=== PATIENT | female | born 1930 | race Caucasian/White ===

== ENCOUNTER 2016-12-26 16:39 | Emergency (ER) | payer MEDICARE, OTHER ==
--- NOTE | ~2016-12-26 | ER ---
PATIENT'S NAME: JESSICA LOAIZA [facility] AGE: 86 Y [address] ROOM: [place] [address] LOCATION: ED ADMIT DATE: 12/26/2016 ER/Outpatient Report DISCHARGE DATE: 12/26/2016 FAMILY PHYSICIAN: Chilango Reed MD ATTENDING PHYSICIAN: Shyam Tapia Time of Arrival: 1644 hours. Time of Evaluation: 1657 hours. CHIEF COMPLAINT: Weakness. HISTORY OF PRESENT ILLNESS: The patient states that she did hemodialysis today as scheduled and just feels very weak. Her states that she has not felt the best for the past week. She had decreased appetite. She states she itches all over, but that has been going on for quite some time. She reports being nauseated, has not vomited. Denies having any chest pain. She has not had a cough. She does not feel short of breath. Denies having any abdominal pain. States she does not make urine on a regular basis. ALLERGIES: CODEINE. CURRENT MEDICATIONS: On her chart and were reviewed by me. PAST MEDICAL HISTORY: Paroxysmal atrial fib; osteoporosis; osteoarthritis; aortic stenosis; pulmonary hypertension; hypertension; hypothyroidism; valvular heart disease; depression; end-stage renal disease, requiring hemodialysis; coronary artery disease; seizures; hiatal hernia. PAST SURGICAL HISTORY: Fistula, hernia repair, and gastric bypass that was a result of a failed Sujey fundoplication. SOCIAL HISTORY: She lives at home with her . Denies use of drugs, alcohol, or tobacco. REVIEW OF SYSTEMS: All negative other than those mentioned in the HPI. PHYSICAL EXAMINATION: VITAL SIGNS: She weighs 62.7 kg, blood pressure is 88/63, pulse of 90, PATIENT'S NAME: JESSICA LOAIZA [facility] AGE: 86 Y [address] ROOM: [place] [address] LOCATION: [facility] ADMIT DATE: 12/26/2016 ER/Outpatient Report DISCHARGE DATE: 12/26/2016 FAMILY PHYSICIAN: Chilango Reed MD ATTENDING PHYSICIAN: Shyam Tapia respirations 16, temperature of 97.9, O2 saturation is 96% on room air. GENERAL: She is awake, alert, and oriented x4. SKIN: [place], warm, and dry. RESPIRATIONS: Even and nonlabored. HEENT: Pupils are equal and reactive to light. Oropharynx is clear. NECK: Supple. No lymphadenopathy. LUNGS: Lung sounds are clear throughout. HEART: Regular rate and rhythm. ABDOMEN: Round, slightly distended. Bowel sounds are present. EXTREMITIES: She has strong pulses of all extremities. No peripheral edema noted. LABORATORY DATA AND X-RAYS: Lab work was drawn. CBC shows a white count of 5.8, her hemoglobin is 10.4 with hematocrit of 32.2. Sedimentation rate was 69. Chem panel: Sodium is 139, potassium is 3.8, chloride is 101, BUN is 21 with a creatinine of 3. Her CRP was 1.61. CPK was 70, CK-MB was 2.2, troponin was 0.231. Free T4 was 1.2 with a TSH of 6. Phosphorus was 1.8. EKG shows sinus rhythm with multifocal PVCs. EMERGENCY DEPARTMENT COURSE: The patient was monitored. IV saline lock was initiated with fluids of normal saline at 500 mL bolus over an hour was given. The patient was reviewed with Dr. Beltrán. Her lab work is comparable to what it has been. The patient states that she is feeling better after the fluids and would like to go home. She does not want to stay in the hospital. She is scheduled to do dialysis again on Monday. IMPRESSION: Weakness, mild dehydration from dialysis. PLAN: Home. Rest. Fluids. Continue her current medications. Do dialysis as scheduled. However, if she is not feeling better within the next 24 to 48 hours, I encouraged her to get in touch with her primary provider or return to the ER. She agreed and verbalized understanding. OG CLARK APRN FOR MD PHANI OROZCO/isamar PATIENT'S NAME: JESSICA LOAIZA [facility] AGE: 86 Y [address] ROOM: [place], [place] [address] LOCATION: GMED ADMIT DATE: 12/26/2016 ER/Outpatient Report DISCHARGE DATE: 12/26/2016 FAMILY PHYSICIAN: Chilango Reed MD ATTENDING PHYSICIAN: Shyam Tapia /[id number] d: 12/27/16240 t: 01/10/17 193, OUTPATIENT REPORT
[~2016-12-26 16:39] MED LIST: "\\\"PREP SPRAY\\\"-TIN4 OZ"; ASPIRIN LO-DOSE81 MG PO; CALCIUM 600 +1 EAC7 PO; CALCIUM ACETAT667 M1 PO; CHILDREN'S CHEW81 MG PO; CIPRO500 MG PO; COMBIGAN 0.25 ML/BOT OPHTH; CORDARONE,PACE200 MG PO; COZAAR25 MG PO; DILANTIN100 MG PO; DIPHENOXYLATE-1 EACH PO; ELIQUIS2.5 MG PO; ELIQUIS5 MG PO; FEOSOL325 MG PO; FOSAMAX70 MG PO; LEVOTHROID (SY88 MCG PO; LIPITOR40 MG PO; LOPRESSOR25 MG PO; MIDODRINE HCL10 MG PO; NORVASC2.5 MG PO; PHENERGAN25 M1 PO; PLAVIX75 MG PO; PRESERVISION A1 EAC2 PO; TYLENOL EXTRA500 MG PO; ULTRAM50 MG PO; VITAMIN B-1000 MCG/M SUB-Q; ZYRTEC10 MG PO
[2016-12-26 17:21] LABS: BASOPHIL % 0.3 %; EOSINOPHIL # 0.1 K/uL (0.0-0.5); EOSINOPHIL % 1.5 %; HEMATOCRIT 32.2 % (30.0-46.0); HEMOGLOBIN 10.4 g/dL (10.0-15.0); IMMATURE GRANULOCYTE % 0.3 %; LYMPHOCYTE # 0.9 K/uL (0.8-4.0); LYMPHOCYTE % 14.8 %; MCH 36.2 pg (27.0-34.0); MCHC 32.3 gm/dL (32.0-36.5); MCV 112.2 fl (83.0-98.0); MONOCYTE # 0.6 K/uL (0.0-1.0); MONOCYTE % 10.1 %; MPV 9.8 fl (9.4-12.4); NEUTROPHIL # (ANC) 4.3 K/uL (1.8-7.8); NRBC % 0 /100WBC (0-0.00); PLATELET COUNT 158 K/uL (150-450); RDW-CV 16.8 % (11.9-14.6); WBC 5.8 K/uL (4.0-11.0)
[2016-12-26 17:23] LABS: RBC 2.87 M/uL (3.00-5.00)
[2016-12-26 17:37] LABS: ALBUMIN 2.7 gm/dL (3.5-5.0); ANION GAP 9.8 (10.0-19.0); CALCIUM 8.5 mg/dL (8.5-10.5); POTASSIUM 3.8 mMol/L (3.7-5.1); TOTAL BILIRUBIN 0.9 mg/dL (0.0-1.5); TOTAL PROTEIN 7.3 g/dL (6.0-8.4)
== END 2016-12-26 20:38 | disposition disaster alternative care site (69) ==
LOC: GMED 16:39
PROVIDERS: Nurse Practitioner Family
DX: R53.1 Weakness (principal); E86.0 Dehydration; I12.0 Hypertensive chronic kidney disease with stage 5 chronic kidney disease or end stage renal disease; N18.6 End stage renal disease; I25.10 Atherosclerotic heart disease of native coronary artery without angina pectoris; F32.9 Major depressive disorder, single episode, unspecified; Z99.2 Dependence on renal dialysis; I48.0 Paroxysmal atrial fibrillation; Z88.5 Allergy status to narcotic agent; Z79.899 Other long term (current) drug therapy
CPT/HCPCS: J7030

== ENCOUNTER 2017-02-12 18:10 | Inpatient (IN) | payer MEDICARE, OTHER ==
[~2017-02-12] VITALS: Ht 170.2 cm; Wt 70.8 kg
--- NOTE | ~2017-02-12 | CON ---
PATIENT'S NAME: JESSICA LOAIZA [facility] AGE: 86 Y [address] ROOM: [address] [place] [id number] LOCATION: GICU ADMIT DATE: 02/12/2017 Consultation DISCHARGE DATE: FAMILY PHYSICIAN: Chilango Reed MD ATTENDING PHYSICIAN: CORTEZ KERN REFERRING PHYSICIAN: Redd Summers MD REASON FOR CARDIOLOGY CONSULTATION: Atrial fibrillation with rapid ventricular response. HISTORY OF PRESENT ILLNESS: This is an 86-year-old white female with end-stage renal disease, who completes hemodialysis on Monday, Monday, and Monday. She normally follows her cardiology care with Dr. Noe Antonio. She presented to [facility] Emergency Department with complaints of not feeling well, overall tired, and nauseated. Her admits that she has been having some shaking episodes yesterday. Her last hemodialysis run was on Monday. On her hat marker, she appears to be in atrial fibrillation with rapid ventricular response as well as having a new intraventricular conduction delay. She has a previous history of being cardioverted by Dr. Noe Antonio on 06/21/2016, and at that time, she had a narrow QRS. Her last echocardiogram in April of 2016 had new regional wall motion abnormalities and decreased ejection fraction when compared to her 2014 echo. Catheterization in 2003 showed nonobstructive coronary artery disease, but she does have known moderate to severe aortic stenosis and mitral regurgitation. Per the emergency room physician, she was having runs of ventricular tachycardia as well and is currently on IV amiodarone. PAST MEDICAL HISTORY: 1. Chronic systolic congestive heart failure. 2. Paroxysmal atrial fibrillation. 3. End-stage renal disease, on hemodialysis on Monday, Monday, and Monday. 4. Hypertension. 5. Hypothyroidism. 6. History of stroke. 7. History of seizure. 8. 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 9. History of lower GI bleeding. PAST SURGICAL HISTORY: 1. Hiatal hernia repair. 2. Bilateral cataract removal. FAMILY HISTORY: The patient's father due to heart disease. Her mother had a history PATIENT'S NAME: JESSICA LOAIZA [facility] AGE: 86 Y [address] ROOM: [place] [address] LOCATION: [facility] ADMIT DATE: 02/12/2017 Consultation DISCHARGE DATE: FAMILY PHYSICIAN: Chilango Reed MD ATTENDING PHYSICIAN: CORTEZ KERN of colon cancer. She has a sister with a history of breast cancer and a brother with celiac disease. SOCIAL HISTORY: The patient denies ever using tobacco. She also denies alcohol or illicit drug use. CURRENT MEDICATIONS: 1. Amiodarone IV. 2. Heparin IV per ACS protocol. 3. Protonix 40 mg IV twice daily. REVIEW OF SYSTEMS: Pertinent positive review of systems as listed in the HPI. All other review of systems were evaluated and negative. PHYSICAL EXAMINATION: VITAL SIGNS: Temperature 98.0, pulse 94, respirations 31, blood pressure 91/41, and O2 saturation 97% on room air. The patient weighs 62.6 kg. SKIN: Dusky in color. ENT: Oral mucosa is pink and moist. She does have the presence of jugular venous distention. CHEST: There are noted rales throughout lung sims. HEART: Irregular rate and rhythm. There is a 2/6 holosystolic murmur as well as a 2/6 systolic ejection murmur. ABDOMEN: Soft and nontender. MUSCULOSKELETAL: Peripheral pulses palpable, but diminished. There is mild lower extremity edema present. PSYCHIATRIC: Disoriented to full medical details. Majority of her medical history from chart review and from speaking with her . IMPRESSION AND PLAN: Per Dr. Summers. 1. Atrial fibrillation with rapid ventricular response. 2. New intraventricular conduction delay. 3. Mild hyperkalemia. 4. Nonsustained ventricular tachycardia. 5. Low level troponin elevation which is chronic. The patient's proBNP is greater than 175,000. We will continue to trend cardiac enzymes and continue the IV amiodarone and correct electrolytes. We will continue supportive care in the ICU admission. Her preliminary echocardiogram shows biventricular dysfunction with right ventricular volume overload. There was severe tricuspid regurgitation as well as severe pulmonary hypertension. Left ventricular ejection fraction down to 15% to 20% as well as severe aortic stenosis and mitral regurgitation. We will continue PATIENT'S NAME: JESSICA LOAIZA [facility] AGE: 86 Y [address] ROOM: [place] [address] LOCATION: [facility] ADMIT DATE: 02/12/2017 Consultation DISCHARGE DATE: FAMILY PHYSICIAN: Chilango Reed MD ATTENDING PHYSICIAN: CORTEZ KERN anticoagulation with heparin and add dobutamine. We will continue to monitor, evaluate, and treat as appropriate until care is resumed by Dr. Noe Antonio in the morning. Thank you for this consult. Thank for allowing [facility] to interact in the care of this patient. HELLEN GLYNN APRN FOR FREDA-MD DARRIUS ESPAZRA/modl /[id number] d: 02/13/17 1411 t: 02/26/17 1153, CONSULTATION REPORT
--- NOTE | ~2017-02-12 | CATH ---
Cardiac Diagnostic Report Demographics Patient Name FADIA Goodman Gender Female Date of 1930 Age 86 year(s) Patient Number [id number] Date of Study 02/21/2017 Visit Number [id number] Room Number G[address] [place] [id number] Ht 162.56 cm Wt 64 kg Referring Derek Kee Primary Physician Physician Shari REESE Performing Marisela Liu MD Secondary Physician Physician Diagnostic Marisela Liu MD Assisting Physician Physician Interventional Physician Pull Up Hand Physician Findings and Conclusions Diagnostic Findings and Conclusion Non obstructive CAD Severe pulmonary hypertension Diagnostic Recommendations Referral for TAVR Routine post perclose Procedure Description The patient was brought to the diagnostic cardiac catheterization-EP laboratory in the fasting, non-sedated state. Informed consent was obtained in the written and verbal form after the risks and benefits were explained. The patient had no further questions and agreed to proceed. The planned puncture-incision site(s) were shaved and prepped with ChloraPrep and draped in the usual sterile manner. Conscious sedation, supplemental oxygen, and pain control medications were delivered by a registered nurse under physician guidance. Surface ECG rhythm, blood pressure measurement, and pulse oximetry were monitored throughout the procedure. Arterial access. The access site was infiltrated with lidocaine. The vessel was entered with the Seldinger technique. A sheath was advanced into the vessel and used for catheter placement. Venous access. The access site was infiltrated with 2% lidocaine. The vessel was entered with the Seldinger technique. A sheath was advanced into the vessel and used for catheter placement. Selective left coronary angiography. A catheter was advanced into the left coronary vessel ostium under Fluoroscopic guidance. Contrast was injected by hand. Images were obtained in multiple projections. Selective right coronary angiography. A catheter was advanced into the right coronary vessel ostium under fluoroscopic guidance. Contrast was injected by hand. Images were obtained in multiple projections. Right heart catheterization. A Knott Leighton catheter was successfully advanced to the right atrium, right ventricle, pulmonary artery, and pulmonary artery wedge position under fluoroscopic guidance. Resting hemodynamics were obtained. Measurements included pressures, arterial and venous oxygen saturation samples, and cardiac output. The Knott was removed without difficulty. Arterial and Venous hemostasis was achieved. The patient was transferred to a regular nursing floor via cart accompanied by a nurse. The patient left the laboratory in stable condition. Diagnostic Cath Status: Urgent Procedure Procedure Type Diagnostic procedure:Angiography:, RHC w/Coronary Angio Indications: Mitral Regurgation and aortic stenosis. The procedure was explained in detail to the patient. Risks, complications and alternative treatments were reviewed. Written consent was obtained. Medications Reviewed with Patient prior to Procedure. Angiographic Findings Dominance: Right Cardiac Arteries and Lesion Findings LMCA: Normal (0% Stenosis).Large LAD: Normal (0% Stenosis).LAD large. Diag 1 large LCx: Normal (0% Stenosis).Circ co dominant and large. OM medium RCA: Normal (0% Stenosis).RCA large. PL and PDA medium Procedure Data Procedure Date Date: 02/21/2017Start: 12:12 PMEnd: 12:56 PM Entry Locations - Percutaneous access was performed through the Right Femoral artery (Primary location). A 6 Fr sheath was inserted. Hemostasis was successfully obtained using Perclose ProGlide (Mukherjee). Closure Comments: Perclose deployed by Jv. - Percutaneous access was performed through the Right Femoral vein. A 7 Fr sheath was inserted. Devices Used - A6 Fr. BS JL 4 Diag. Catheterwas used for:Left coronary angiography. - A6 Fr. BS Angled Pigtail Diag. Catheterwas used for:LV Pressures.Unable to cannulate the vessel. - A6 Fr. BS JR 4 Diag. Catheterwas used for:LV Pressures.Unable to cannulate the vessel. - A6 Fr. BS JR 4 Diag. Catheterwas used for:Right coronary angiography.Unable to cannulate the vessel. Contrast Material - Isovue 85718 ml Fluoroscopy Time: Diagnostic: 8:48 minutes. Total: 8:48 minutes. Fluoroscopy Dose: Diagnostic: 249 mGy. Total: 249 mGy. Estimated Blood Loss: 4 ml. Medical History Performed Procedures and Imaging Results - No ACC stress or imaging studies were performed. Allergies - Morphine. - Codiene. - Other:(hydrocodone, propoxyphene, meperidine). Risk Factors The patient risk factors include:peripheral arterial disease, cerebrovascular disease, hypertension, family history of premature CAD, diabetes mellitus, last creatinine: 3.6 mg/dl, creatinine clearance: 11.33 ml/min, dyslipidemia and prior heart failure . Admission Data Admission Date: 02/12/2017 Admission Time: 08:56 PM Admit Source: Emergency department Insurance Payors: Medicare. Admission Medications + +------+-------+ + + + + !Medication!Dosage!Times !Last !Last !Administered !Comments ! ! ! !Per Day!Delivery !Delivery ! ! ! ! ! ! !Date !Time ! ! ! + +------+-------+ + + + + !Aspirin ! ! ! ! !Yes ! ! !(any) ! ! ! ! ! ! ! + +------+-------+ + + + + !Statin ! ! ! ! !Yes ! ! !(any) ! ! ! ! ! ! ! + +------+-------+ + + + + Clinical Evaluation Leading to Procedure - The patient's CAD presentation was assessed as: Symptom unlikely to be ischemic. - The patient has been in a state of heart failure within the past two weeks. - The patient's heart failure status was assessed as NYHA Class IV. - The reason for the patient's labor operator visit is evaluation of cardiomyopathy and/or evaluation of left ventricular systolic dysfunction. Hemodynamics Condition: Rest O2 Consumption: Estimated: 157.39Heart Rate: 82 bpm Oxygen Saturation +--------+-----+----+ +---+ + !Location!pCO2 !pO2 !% Saturation !Hgb!O2 Content ! +--------+-----+----+ +---+ + !SVC ! ! !62.5 ! ! ! +--------+-----+----+ +---+ + !IVC ! ! !51.2 ! ! ! +--------+-----+----+ +---+ + !RA ! ! !57.8 ! ! ! +--------+-----+----+ +---+ + !PCW ! ! !94.9 ! ! ! +--------+-----+----+ +---+ + !PA ! ! !58.8 ! ! ! +--------+-----+----+ +---+ + Pressures (mmHg) +-----+ + !Site !Pressure ! +-----+ + !RA ! (15) ! +-----+ + !RV !60/- ,13 ! +-----+ + !PCW !24/35 (24) ! +-----+ + !PA !59/18 (38) ! +-----+ + !AO !94/60 (75) ! +-----+ + !AO !/ (0) ! +-----+ + !FA !117/57 (81) ! +-----+ + Cardiac Output + + +------+ !Time !Cardiac Output (l/min) !Use ! + + +------+ !02/21/2017 12:36 PM !3.07 !False ! + + +------+ !02/21/2017 12:37 PM !4.35 !True ! + + +------+ !02/21/2017 12:38 PM !3.35 !True ! + + +------+ !02/21/2017 12:38 PM !4.11 !True ! + + +------+ !02/21/2017 12:39 PM !4.43 !False ! + + +------+ Cardiac Output +-------+ + + + !Method !CO (l/min) !CI (l/min/m2) !SV (ml) ! +-------+ + + + !Thermal!3.500631 !2.3 !48.6 ! +-------+ + + + Shunts Oxygen Values O2 Capacity 133.28 O2 Consumption 157.39 Flows (l/min) Qe/Qp 1.02 Qp 3.27 Qe 3.35 Vascular Resistance (dynes x sec x cm-5) + +----+---+-----+----+---------+-------+ !CO method !TSVR!SVR!TPVR !PVR !TPVR/TSVR!PVR/SVR! + +----+---+-----+----+---------+-------+ !Thermal ! ! !9.68 !3.56! ! ! + +----+---+-----+----+---------+-------+ !Qp or Qs ! ! !11.65!4.28! ! ! + +----+---+-----+----+---------+-------+ Discharge Data Discharge Date: 02/23/2017 Hospital Status: Inpatient Signatures dtt: Noe Antonio (cardio) dtd: 02/21/17 1212 Physician Self Edit
--- NOTE | ~2017-02-12 | DS ---
PATIENT'S NAME: JESSICA LOAIZA [facility] AGE: 86 Y [address] ROOM: [address] [address] LOCATION: GPCU ADMIT DATE: 02/12/2017 Discharge Summary DISCHARGE DATE: 02/23/2017 FAMILY PHYSICIAN: Chilango Reed MD ATTENDING PHYSICIAN: Liliana Singh ADMISSION DIAGNOSIS: Cardiogenic shock with decompensated heart failure. DISCHARGE DIAGNOSIS: Cardiogenic shock with decompensated heart failure, improved. SECONDARY DIAGNOSES: 1. Aortic stenosis. 2. Nonischemic cardiomyopathy. 3. Adrenal insufficiency. 4. Hypertension. 5. Atrial flutter. 6. End-stage renal disease. 7. Anemia. 8. Urinary tract infection. PROCEDURES PERFORMED: Coronary angiogram, and echocardiogram. CONSULTATIONS: Cardiology. HISTORY OF PRESENT ILLNESS: The patient is an 86-year-old female, with a history of ESRD, on hemodialysis on Monday, Monday, and Monday, and last dialysis two days ago prior to admission, who presented with complaints of chills, and being feeling tired, and shortness of breath. The patient was also found to have altered mental status. The patient was admitted and was started on UTI treatment with Levaquin and was also started on amiodarone drip for atrial flutter as the patient was found to be in atrial flutter. HOSPITAL COURSE: The patient was noted to have labile blood pressure. The patient was started on dobutamine drip. The patient's symptoms improved during stay. The patient was transitioned off from dobutamine drip. The patient's last test done of random cortisol in the morning showed the result that was suspicious for adrenal insufficiency. She was not on any steroids. The patient was started on steroids, dexamethasone with improvement of blood pressure. The patient continued to improve. The patient was also on Levaquin for urinary tract infection. Symptoms improved during stay. The patient had echocardiogram done on February 12 which showed ejection fraction of 20% to 15% with mild constrictive left ventricular hypertrophy and restrictive filling pattern, and also showed [id number] reduced right ventricular function with pressure and volume overload, and also severe aortic stenosis. The PATIENT'S NAME: JESSICA LOAIZA [facility] AGE: 86 Y [address] ROOM: [address] [place], [place] [address] LOCATION: GPCU ADMIT DATE: 02/12/2017 Discharge Summary DISCHARGE DATE: 02/23/2017 FAMILY PHYSICIAN: Chilango Reed MD ATTENDING PHYSICIAN: Liliana Singh A patient had cardiac catheterization during stay by Dr. Antonio. Coronaries were nonobstructive, and also shows severe aortic stenosis. The patient tolerated the procedure well. A discussion was made with the patient to have TAVR done at [facility] after this admission. The patient's adrenal insufficiency was also re-evaluated with stimulation test. Stimulation test shows finding which is consistent with adrenal insufficiency. The patient's dexamethasone was changed to hydrocortisone 10 mg in a.m. and 5 mg in p.m. The patient tolerated hydrocortisone. Blood pressure improved with steroid treatment. In terms of nonischemic cardiomyopathy, the patient was not placed on most of core measures medication due to labile blood pressure. During her stay, the patient was also seen by Dr. Syed and has had dialysis done. Regarding atrial flutter, discussion was made about starting the patient on anticoagulation. The patient has a history of GI bleed and reports that she easily bleed. Daughter and the patient does not want anticoagulation for now and request to talk to Dr. Antonio as outpatient before they start anticoagulation. The patient was also seen by Physical Therapy and Occupational Therapy. The patient is going to be discharged to [facility] for ongoing PT and OT. CONDITION: Stable. DISPOSITION: [facility]. DISCHARGE MEDICATIONS: Please see MAR. DISCHARGE INSTRUCTIONS: To contact physician or go to the emergency department if the patient has chest pain, worsening shortness of breath, fever, chills, and productive cough. We will also require patient to wear adrenal insufficiency bracelet upon discharge. Recommendation to wear adrenal insufficiency bracelet. FOLLOW-UP PLAN: To follow up with Dr. Syed for dialysis, follow up with Dr. Antonio, title processor, and to follow up with primary care physician and follow up with house physician at [facility]. PHYSICAL EXAMINATION: VITAL SIGNS: Blood pressure 114/70, afebrile; heart rate of 72; saturating 93% on room air; and respiratory rate of 14. HEAD: Normocephalic and atraumatic. CHEST: Clear to auscultation bilaterally. HEART: Grade 2 systolic murmur. ABDOMEN: Soft, nontender, and nondistended. Bowel sounds present. SKIN: Warm to touch. EXTREMITIES: Right forearm AV fistula. PATIENT'S NAME: JESSICA LOAIZA [facility] AGE: 86 Y [address] ROOM: [address] [place] [address] LOCATION: GPCU ADMIT DATE: 02/12/2017 Discharge Summary DISCHARGE DATE: 02/23/2017 FAMILY PHYSICIAN: Chilango Reed MD ATTENDING PHYSICIAN: Liliana Singh FREIGHT ENGINEER: Alert and oriented x3. Motor and sensory are grossly intact. Greater than 30 minutes were spent on discharge planning. MD KATHERYN NAVARRETE/isamar /[id number] d: 02/24/17 1236 t: 02/28/17 0614, DISCHARGE SUMMARY
--- NOTE | ~2017-02-12 | ER ---
PATIENT'S NAME: JESSICA LOAIZA [facility] AGE: 86 Y [address] ROOM: [place] [address] LOCATION: [facility] ADMIT DATE: 02/12/2017 ER/Outpatient Report DISCHARGE DATE: FAMILY PHYSICIAN: Chilango Reed MD ATTENDING PHYSICIAN: CORTEZ SINGH Admission date and time documented on the medical record. I saw the patient at 1815. CHIEF COMPLAINT: Weakness, shortness of breath, lower leg cramping, muscle spasms. HISTORY OF PRESENT ILLNESS: The patient is an 86-year-old female, brought to the emergency room by paramedics via ambulance for evaluation. She has not been feeling good today, developed muscle spasm, cramping in her legs along with generalized weakness. She is short of breath, but no chest pain. No abdominal pain. She is nauseated, but no vomiting or diarrhea. No urinary complaints. Little lightheaded and dizzy, but no syncope or near syncope. No fall or trauma. No headache, eyes, ears, nose, throat, neck, or spine pain. No recent colds, coughs, flus, fever, chills, or sweats. She does have end-stage renal failure. She has hemodialysis on Monday, Monday, Monday. She did have a low blood pressure at 72/50, was given an L of fluid and her blood pressure responded well. She is in the irregular regular rhythm, tachy. Does have a history of paroxysmal atrial fibrillation, appears to be in atrial fibrillation with rapid ventricular response. She is afebrile. She is not hypoxic. Not having any respiratory distress. The patient does have a history of aortic stenosis. Hypothyroidism. She does have a history of seizures. Also has a history of depression anxiety. No skin eruptions or rash. HOME MEDICATIONS: See attached medication list. ALLERGIES: CODEINE, DARVOCET, AND MORPHINE SULFATE. SOCIAL HISTORY: Nonsmoker and nondrinker. The patient is . Lives in her own home. SIGNIFICANT PAST MEDICAL HISTORY: Hypertension, paroxysmal atrial fibrillation, osteoporosis, osteoarthritis, valvular heart disease with aortic stenosis, pulmonary hypertension, hypothyroidism, depression, anxiety, chronic kidney disease on hemodialysis, atherosclerotic ischemic heart disease with coronary artery disease, seizure PATIENT'S NAME: JESSICA LOAIZA [facility] AGE: 86 Y [address] ROOM: [id number] [place], [place] [address] LOCATION: [facility] ADMIT DATE: 02/12/2017 ER/Outpatient Report DISCHARGE DATE: FAMILY PHYSICIAN: Chilango Reed MD ATTENDING PHYSICIAN: CORTEZ SINGH A disorder, hiatal hernia, dyslipidemia, diverticulosis, cerebrovascular accident, delirium, sepsis, pneumonia, diastolic congestive heart failure, C. diff colitis, colon polyps, nephrolithiasis, and vitamin D deficiency. OPERATIONS: DC cardioversion, AV fistula placement, herniorrhaphy, gastric bypass, Sujey fundoplication, hiatal hernia repair, cardiac catheterization, esophagogastroduodenoscopy, colonoscopy, and cystoscopy. REVIEW OF SYSTEMS: All systems reviewed by me are negative with the exception of those discussed in the history of present illness. PHYSICAL EXAMINATION: VITAL SIGNS: Temperature 97.7 tympanic, pulse 110, respirations 18, blood pressure initially was 72/50, O2 saturation on room air is 94%. HEAD: Normocephalic. No abrasion, contusion, laceration, swelling of the scalp or face. EYES: Extraocular is intact DELIO. Ears, clear TMs bilaterally. NOSE AND THROAT: Clear. Mucous membranes moist. NECK: No nuchal rigidity. No thyromegaly or cervical lymphadenopathy. SPINE: Negative. LUNGS: Decreased breath sounds diffusely. Otherwise, fairly clear. HEART: Irregular regular, tachy pulses palpable. No chest wall or ribcage pain to palpation. No deformity. ABDOMEN: Soft, nondistended, nontender. Good bowel tones. No organomegaly. No mass palpable. EXTREMITIES: Some peripheral edema. No pitting edema. No cyanosis. No deformity. NEURO: Cranial nerves intact. No lateralizing sign. The patient is awake, cooperative. Motor and sensory intact. SKIN: Clear. No skin eruptions or rash. LABORATORY DATA: White count is 5900, 73 segs, 20 lymphs, 6 monos, 1 baso. Hemoglobin is 10.9, hematocrit 33.3, platelet count 146,000. PTT was 23. ProTime is 12.1 with an INR 1.15. CMS was normal except for an elevated potassium of 5.7, low CO2 content of 21. Slightly elevated anion gap at 19.7, elevated glucose 116, low calcium of 8.2, elevated BUN of 57, elevated creatinine 5.2, low GFR of 8. AST was elevated at 61, magnesium was slightly elevated at 2.7. CPK was 110, CK-MB was 3.4, troponin is chronically elevated because of her renal status, it was elevated at 0.257. CRP was 0.78, TSH was 6.9, proBNP was 175,000, lactate was 2.8. Procalcitonin was 0.33. Chest x-ray showed cardiomegaly, no acute infiltrate. Does have congestive PATIENT'S NAME: JESSICA LOAIZA [facility] AGE: 86 Y [address] ROOM: [place] [address] LOCATION: [facility] ADMIT DATE: 02/12/2017 ER/Outpatient Report DISCHARGE DATE: FAMILY PHYSICIAN: Chilango Reed MD ATTENDING PHYSICIAN: CORTEZ SINGH A failure pattern. We will review x-ray with the radiologist. EKG showed atrial fibrillation with rapid ventricular response at 112. IMPRESSION: 1. End-stage renal failure on hemodialysis. 2. She did have an elevated potassium of 5.7, low calcium of 8.2, elevated BUN of 57, elevated creatinine 5.2 with a low GFR of 8. Magnesium was slightly elevated at 2.7. Her urine showed full field whites, 50-100 reds, negative bacteria, culture pending. 3. Atrial fibrillation with rapid ventricular response. The patient does have a history of paroxysmal atrial fibrillation. 4. Atherosclerotic ischemic heart disease with coronary artery disease. 5. Valvular heart disease and aortic stenosis. 6. Dyslipidemia. 7. History of depression and anxiety. PLAN: The patient was given fluid bolus, which improved her blood pressure. Gave her Valium IV for her cramping. This did resolve her cramping. She did have some pruritus on her back, I did give her some Benadryl 12.5 mg IV in the emergency department. Did discuss the patient with Dr. Singh, the hospitalist. The patient will be admitted for further evaluation and treatment. The patient will need dialysis tomorrow. Did discuss my findings with the patient and her , they understand. We will admit the patient to [facility] telemetry. MD LJ LUND/isamar /[id number] d: 02/13/17 0150 t: 02/13/17 1809, OUTPATIENT REPORT
--- NOTE | ~2017-02-12 | CON ---
PATIENT'S NAME: HOLLY LOAIZA [facility] AGE: 86 Y [address] ROOM: [address] [address] LOCATION: GICU ADMIT DATE: 02/12/2017 Consultation DISCHARGE DATE: FAMILY PHYSICIAN: Chilango Reed MD ATTENDING PHYSICIAN: CORTEZ KERN REFERRING PHYSICIAN: Redd Summers MD REASON FOR CONSULTATION: Need for IV access. HISTORY OF PRESENT ILLNESS: The patient is an 86-year-old female, who has end-stage renal disease. She is on hemodialysis. She was admitted with generalized weakness, chills, hypotensive, was found to have a pulmonary embolus. She was in need of IV access, because of this, I was consulted. She has been heparinized. 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 SOCIAL HISTORY: No alcohol or drugs. FAMILY HISTORY: Sister with breast cancer. Father with coronary artery disease. PAST SURGICAL HISTORY: Hiatal hernia. PHYSICAL EXAMINATION: She is an elderly 86-year-old female, who seems confused. She is tachycardic and tachypneic. ASSESSMENT: Pulmonary embolus, hypotension, end-stage renal disease with need for IV access and arterial line monitoring. PLAN: Discussed these findings with Holly and her family. Discussed with Holly need for emergent placement. We discussed risks, which include bleeding, infection, and pneumothorax. DESCRIPTION OF PROCEDURE: In the emergency room, she was supine. Her chest and neck were cleansed with ChloraPrep. Local anesthetic was infiltrated beneath the left clavicle. PATIENT'S NAME: HOLLY LOAIZA [facility] AGE: 86 Y [address] ROOM: [address] [place] [id number] LOCATION: GICU ADMIT DATE: 02/12/2017 Consultation DISCHARGE DATE: FAMILY PHYSICIAN: Chilango Reed MD ATTENDING PHYSICIAN: CORTEZ KERN Using the access needle, the subclavian vein was cannulated. Wire access was obtained. A small stab incision was then created around the wire sheath and dilator inserted over the wire. The wire and dilator were removed. The catheter was then inserted over the wire. The wire was removed. The central line was sewn to the skin. A sterile dressing was placed. It aspirated blood and flushed with saline without difficulty. She tolerated this well. Following this, an arterial line was attempted using ultrasound that we were able to identify the left radial artery in several locations. I attempted to place the arterial line. We easily could cannulate the vessel; however, wire access was difficult to obtain an insertion. We never did get a good functional arterial line despite multiple attempts. Using the central line, she was able be fluid resuscitated and her blood pressure stabilized, so we aborted the arterial line. MD UMAIR HAAS/modl /[id number] d: 02/14/17 2229 t: 03/02/17 1933, CONSULTATION REPORT
--- NOTE | ~2017-02-12 | HP ---
PATIENT'S NAME: JESSICA LOAIZA [facility] AGE: 86 Y [address] ROOM: [address] [place] [id number] LOCATION: [facility] ADMIT DATE: 02/12/2017 History & Physical DISCHARGE DATE: FAMILY PHYSICIAN: Chilango Reed MD ATTENDING PHYSICIAN: CORTEZ KERN DATE OF SERVICE: CHIEF COMPLAINT: Not feeling well in general with chills. HISTORY OF PRESENT ILLNESS: This is an 86-year-old female, who has a history remarkable for end- stage renal disease, on hemodialysis every Mondays, Wednesdays, and Fridays. Her last dialysis was 2 days ago. The story is obtained directly from the patient's who is at the bedside given that patient is currently confused and cannot provide any reliable history. The story is that yesterday, the patient was complaining of some chills and had been feeling tired, and today has been feeling itchy all over body, also chills, also tired, and confused. The patient' says that her the patient has been like this before but not this severe, and the patient's says that it usually happens after dialysis. When I asked the patient if she has any complaint, the patient denies any chest pain, but does state that she has some shortness of breath, which is chronic for her, and she says that has not worsened. The patient is in acute distress, confused, and she states that she does not make any urine. The patient denies any other symptoms. REVIEW OF SYSTEMS: As mentioned in the history of present illness. All other systems were reviewed and were negative except those mentioned in the history of present illness. PAST MEDICAL HISTORY: 1. History of lower GI bleeding in the past. 2. 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 3. Paroxysmal atrial fibrillation. 4. ESRD, on hemodialysis every Mondays, Wednesdays, and Fridays. 5. Hypertension. 6. Hypothyroidism. 7. Hiatal hernia. 8. Seizure disorder. 9. Stroke in the past. 10. History of systolic congestive heart failure, the last echo on [employer] was in March 2016, EF was 40% to 45% with moderate to severe aortic stenosis. PATIENT'S NAME: JESSICA LOAZIA [facility] AGE: 86 Y [address] ROOM: [id number] [place], [place] [address] LOCATION: [facility] ADMIT DATE: 02/12/2017 History & Physical DISCHARGE DATE: FAMILY PHYSICIAN: Chilango Reed MD ATTENDING PHYSICIAN: CORTEZ KERN SOCIAL HISTORY: The patient denies any alcohol or illegal drug or cigarette use. FAMILY HISTORY: History of breast cancer in a sister. Father had a heart disease. Brother had a celiac disease. Mother had colon cancer. PAST SURGICAL HISTORY: 1. Hiatal hernia, status post Johnny-en-Y partial esophagectomy in the past. 2. Bilateral cataract surgery in the past. PHYSICAL EXAMINATION: VITAL SIGNS: Temperature 98, heart rate 102, respiration 16, blood pressure 111/83, saturation 96% on room air. GENERAL APPEARANCE: The patient is in acute distress and looks acutely ill and frail. Alert and oriented x3, but the patient looks in acute distress and acutely ill. HEENT: Pupils are equally round and reactive to light. Extraocular muscles intact. Anicteric sclerae. Nasal turbinates are normal bilaterally. Dry oral mucosa. NECK: No JVD. CARDIOVASCULAR: She has a murmur grade 3. No rubs. No gallops. Tachycardia. Irregular rate and rhythm. RESPIRATORY: Clear to auscultation. ABDOMEN: Soft, nontender, nondistended. No mass. Bowel sounds are present. EXTREMITIES: No edema in upper or lower extremities. NEUROLOGICAL: The patient is alert and oriented x3 but is in no acute distress. Cannot perform a full neurological exam given the patient does not cooperate. No facial droop. No slurred speech. Babinski negative. SKIN: No ulcer, no rash, no cyanosis. LABORATORY DATA: Lactic acid 2.8. Troponin 0.257, CPK 110, CK-MB 3.4. White blood cells 5.9, hemoglobin 10.9, hematocrit 33.3, platelet 146. Glucose 116, BUN 57, creatinine 5.2, sodium 137, potassium 5.7, chloride 102, 133, CO2 of 21, calcium 8.2. Total protein 8.1, albumin 3.1, AST 61, ALT 31, alkaline phosphatase 81, total bilirubin 0.9. Magnesium 2.7. GFR 8. Anion gap 19.7. INR 1.15, PTT 23. Urinalysis showed 500 leukocytes, too much of white blood cell to count, negative nitrite, negative bacteria, 20-50 blood, and 50-100 red blood cells. TSH 6.9. Procalcitonin 0.33. D-dimer is pending. IMAGING STUDIES: Chest x-ray on admission showed cardiac enlargement with mild vascular congestion. Left infrahilar and left base opacity, which could reflect PATIENT'S NAME: JESSICA LOAIZA [facility] AGE: 86 Y [address] ROOM: [id number] [place], [place] [address] LOCATION: [facility] ADMIT DATE: 02/12/2017 History & Physical DISCHARGE DATE: FAMILY PHYSICIAN: Chilango Reed MD ATTENDING PHYSICIAN: CORTEZ KERN scarring, edema, infiltrate, or atelectasis. EKG on admission: The first one at 5:58 p.m. showed atrial fibrillation with RVR, heart rate of 119, QRS of 0.182 seconds, QTc of 0.457 seconds. Repeat EKG at 8:17 p.m. showed atrial fibrillation with RVR, heart rate of 119, QTc of 445 milliseconds, QRS 177 milliseconds, concerning for AFib with RVR versus ventricular tachycardia. EMERGENCY ROOM COURSE: In the emergency room per ER physician, the patient had a ventricular tachycardia, therefore IV amiodarone 150 bolus was given followed by the drip. ASSESSMENT AND PLAN: 1. Regarding her acute encephalopathy: Differential could be urinary tract infection, therefore I am going to treat her with IV Zosyn. Follow up with blood culture and urine culture. Second thing could be uremia, but her BUN is not that high to cause symptoms. She is due for dialysis tomorrow. I will consult Nephrology for dialysis tomorrow. Other differential is not clear, and we will follow up with the blood culture. When she is more stable, I will also get a CT of the head without contrast. 2. Regarding her hyperkalemia: I will correct the hyperkalemia with calcium gluconate, one dose followed by insulin and also dextrose and also per rectum Kayexalate. We will be checking the potassium later on today. Further plan depends on clinical course. 3. Regarding her atrial fibrillation with rapid ventricular response versus ventricular tachycardia: On-call vice president quality, Dr. Summers, is here with me seeing the patient. The patient will be getting echo stat. Further plan will depend on Cardiology. For now, continue amiodarone drip and cycle cardiac enzymes. Her enzymes are always elevated, and this is chronic from the end-stage renal disease. The patient denies any chest pain. EKG showed atrial fibrillation with rapid ventricular response versus ventricular tachycardia. Further plan will depend on clinical course and per Cardiology. 4. Regarding her hypothyroidism: Her TSH is high, therefore, we are going to increase the home dose of levothyroxine. Currently, home medication needs to be reconciled before it can be addressed. 5. Regarding her hypertension: For now, hold the medication in the setting of urinary tract infection. Can always resume if necessary. 6. Regarding her history of paroxysmal atrial fibrillation: Currently is on amiodarone drip. Further plan per Cardiology. 7. Regarding her history of systolic heart failure: Echo currently is being performed. The patient looks euvolemic on examination right now. 8. She is a DNI but not DNR. PATIENT'S NAME: JESSICA LOAIZA [facility] AGE: 86 Y [address] ROOM: [place] [address] LOCATION: [facility] ADMIT DATE: 02/12/2017 History & Physical DISCHARGE DATE: FAMILY PHYSICIAN: Chilango Reed MD ATTENDING PHYSICIAN: CORTEZ KERN 9. Deep venous prophylaxis: For now, she is on compression devices, and depending on the echo report to rule out right heart strain and D-dimer is pending, the patient might require blood thinner per Cardiology. Therefore for now, I will do compression device. Further plan will depend on clinical course. Time spent in care on the day of admission, 60 minutes were spent in care where 35 minutes were spent on coordination including speaking to the on-call vice president quality, Dr. Summers, to formulate the plan and also by addressing all the questions and concerns that the patient and the patient's had at the bedside and answered all their questions to their satisfaction. The remainder of time was spent on chart review, interviewing, and also on physical examination. Further plan will depend on clinical course. MD EMPERATRIZ BOYLE/isamar /[id number] D: [id number] T: [id number] HISTORY & PHYSICAL
--- NOTE | ~2017-02-12 | CON ---
PATIENT'S NAME: JESSICA LOAIZA [facility] AGE: 86 Y [address] ROOM: [place] [address] LOCATION: GICU ADMIT DATE: 02/12/2017 Consultation DISCHARGE DATE: FAMILY PHYSICIAN: Chilango Reed MD ATTENDING PHYSICIAN: CORTEZ KERN DATE OF CONSULTATION: 02/13/2017 REFERRING PHYSICIAN: Redd Summers MD This is a [facility] Nephrology consultation. REASON FOR CONSULTATION: End-stage renal disease, need for hemodialysis therapy, hyperkalemia. HISTORY OF PRESENT ILLNESS: This is an 86-year-old female patient, who is well known to Dr. Mcgrath with a history of renal failure from hypertensive nephrosclerosis. The patient is currently getting dialyzed 3 times a week. Her last hemodialysis was on Friday February 10, 2017. The patient's story is obtained directly from her who is at the bedside given the patient's current status. The does report that the patient began complaining of some chills and had been feeling very fatigued yesterday afternoon. He also noted her to be more confused. The does report that this is not uncommon for her following dialysis, however, this continued to persist. Therefore, the did bring the patient into the emergency room for further evaluation. PAST MEDICAL HISTORY: As listed above includin. End-stage renal disease. 2. History of hypertensive nephrosclerosis. 3. History of lower GI bleeding. 4. History of AV malformation of the cecum. 5. Paroxysmal atrial fibrillation with cardioversion in April 2016. 6. End-stage renal disease, on hemodialysis Monday, Monday, and Monday. 7. Renovascular hypertension. 8. Hypothyroidism. 9. Hiatal hernia. 10. Seizure disorder. 11. History of CVA. 12. History of systolic congestive heart failure with last reported ejection fraction of 40% to 45% in March 2016. 13. Moderate to severe aortic stenosis was noted on last echocardiogram in 2015. PAST SURGICAL HISTORY: PATIENT'S NAME: JESSICA LOAIZA [facility] AGE: 86 Y [address] ROOM: [place] [address] LOCATION: GICU ADMIT DATE: 02/12/2017 Consultation DISCHARGE DATE: FAMILY PHYSICIAN: Chilango Reed MD ATTENDING PHYSICIAN: CORTEZ KERN 1. Hiatal hernia, status post Johnny-en-Y partial esophagectomy in the past. 2. Bilateral cataract surgery. 3. AV fistula placement. FAMILY HISTORY: Reviewed and is noncontributory. There is no history of renal disease or dialysis. The patient's sister did have breast cancer as well as her father having heart disease. Her brother did have celiac disease, and her mother had colon cancer. SOCIAL HISTORY: The patient denies any illicit drug use, alcohol use, or smoking. This is confirmed by her at the time of exam. ALLERGIES: MORPHINE, CODEINE, HYDROCODONE, AND MEPERIDINE. CURRENT MEDICATIONS: 1. Tylenol p.r.n. 2. Plavix 75 mg a day. 3. Levothyroxine 75 mcg daily. 4. Lopressor 50 mg twice a day. 5. Dilantin 200 mg twice a day. 6. Lipitor 40 mg daily. 7. Aspirin 81 mg daily. 8. PhosLo 667 mg 3 times a day with food. 9. Midodrine 10 mg p.o. 3 times a week predialysis. REVIEW OF SYSTEMS: Essentially, unable to obtain a full review of systems from the patient due to the patient's current cognitive status. does report the patient has had a progressive onset of fatigue, weakness, and some chills. The patient's also does report that the patient complains of shortness of breath, which he attributes to being chronic. PHYSICAL EXAMINATION: VITAL SIGNS: Blood pressure is 81/53, heart rate is 83, respirations 24, temp is 97.6. GENERAL: The patient is quite somnolent. She does respond and calls me by name on exam. She reports she is quite fatigued. She does appear acutely ill and frail. HEENT: Her pupils are equal, round, and reactive to light. Nose is midline. Mouth: No gingival bleeding. Oral mucosa is dry. NECK: Soft and supple. CARDIOVASCULAR: She does have a grade 3/6 systolic ejection murmur heard best PATIENT'S NAME: JESSICA LOAIZA [facility] AGE: 86 Y [address] ROOM: [id number] [place] [id number] LOCATION: GICU ADMIT DATE: 02/12/2017 Consultation DISCHARGE DATE: FAMILY PHYSICIAN: Chilango Reed MD ATTENDING PHYSICIAN: CORTEZ KERN at the right second intercostal space with radiation to the base of the carotids. RESPIRATORY: Clear to auscultation. ABDOMEN: Soft, nontender, and nondistended. Bowel sounds are positive. EXTREMITIES: Show no signs of peripheral edema, clubbing, or cyanosis. NEUROLOGICAL: Cannot perform a full neurological exam given the patient's current status. SKIN: Warm and dry. LABORATORY DATA: ProBNP is greater than 175,000, troponin I is 0.257. WBCs 5.9, hemoglobin 10.9, hematocrit 33.3, and platelets are 146. Glucose is 112, BUN 62, creatinine 5.4, sodium 136, potassium 5.6, chloride is 103, CO2 is 19, calcium is 8.0, albumin 3.1. INR is 1.15. Urinalysis is positive for protein, 4+ turbidity, 250 blood, 50-100 rbc's, rare epithelial cells, and 2+ amorphous crystals. TSH is 4.54. IMAGING DATA: 1. Chest x-ray does show:. a. Cardiac enlargement with mild vascular congestion. b. Left infrahilar and left base opacity, which could reflect scarring, edema, or infiltrate and atelectasis. 2. A CT with contrast of the chest shows:. a. No pulmonary embolism. b. Cardiac enlargement with vascular congestion. c. Small bilateral pleural fluid collections. d. Areas of ground-glass opacity at the mid and lower portion of each along with patchy areas of parenchymal opacity at the bases. Appearance likely reflects pulmonary edema. Infiltrate and atelectasis also could contribute to observed appearance as could some scarring at the lung bases. 3. CT of the head shows no acute hemorrhage or midline shift identified. There are generalized atrophic changes and white matter small vessel ischemic changes. These findings are usually associated with aging. There is no skull fracture identified on the bone windowed images. There is mucosal thickening at the right maxillary sinus. ASSESSMENT AND PLAN: 1. End-stage renal disease, need for hemodialysis. We will obtain the patient's outpatient clinical record at this time. The patient is currently on dobutamine with blood pressures in the 80s. We will set her at a minimum and not remove any fluid currently. Due to her elevated potassium, we will place her on a 2K bath with a 2.25 calcium bath. She will run on her AV fistula as tolerated. Dr. Mcrgath was present at the time of exam. Further recommendations will be forthcoming. PATIENT'S NAME: JESSICA LOAIZA [facility] AGE: 86 Y [address] ROOM: [place] [address] LOCATION: [facility] ADMIT DATE: 02/12/2017 Consultation DISCHARGE DATE: FAMILY PHYSICIAN: Chilango Reed MD ATTENDING PHYSICIAN: CORTEZ KERN 2. Paroxysmal atrial fibrillation. Per Cardiology. 3. Moderate to severe aortic stenosis. 4. Pulmonary hypertension. 5. History of CVA. This patient has been seen and assessed by Dr. Mcgrath. Her care is being conducted in consultation with Dr. Mcgrath as well as me. We will plan further recommendations as they are forthcoming. In the interim, the patient is to start hemodialysis therapy. SID ADHIKARI DNP, EPIC DIRECTOR FOR Maxine DEYA MCGRATH MD ENS/modl /[id number] d: 02/13/[id number] t: 03/16/17 1104, CONSULTATION REPORT
--- NOTE | ~2017-02-12 | ECHO ---
Transthoracic Echocardiography Report (TTE) Demographics Patient Name JESSICA LOAIZA Date of Study 02/12/2017 Patient Number [id number] Visit Number [id number] Date of 1930 Room Number G6207 Gender Female Number Age 86 year(s) Referring Melina Perez Pillar Man Kwan Wilder MD RDCS, RVT Physician Interpreting [facility] Manager Of Merchandising Physician Chris Wilder MD Supervising Ordering [facility] MD/MLP Physician Chris Wilder MD Nurse Stress Encoding Machine Operator Conclusions Contractility Score Summary At rest the following contractility abnormalities were noted: Hypokinesis of the Mid rigo-lateral, the Mid anterior, the Mid inferior, the Mid infero-lateral, the Basal infero-lateral, the Apical inferior, the Apical lateral, the Basal anterior, the Basal inferior, the Basal rigo-lateral and the Apical cap segments; Dyskinesis of the Mid rigo-septal, the Mid infero-septal, the Apical septal, the Basal rigo-septal, the Basal infero-septal and the Apical anterior segments. Summary Technically difficult exam due to patient movements. The estimated left ventricular ejection fraction is 20-25%. Mild concentric left ventricular hypertrophy. Restrictive filling pattern (severe diastolic dysfunction). Mild to moderately reduced right ventricular function with pressure and volume overload Mildly dilated right ventricle. Severe mitral regurgitation by color Doppler. Moderate mitral annular calcification. There is severe aortic stenosis by the Continuity Equation. The peak velocity is 4.76 m/s, the mean gradient is 50 mmHg, and the valve area based on the continuity equation is 0.42 cm2, stroke volume index is 40 ml/m2. Severe tricuspid regurgitation by color Doppler. There is severe pulmonary hypertension. The pulmonary pressure (RVSP) is 74.91 mmHg. In some views the tricuspid leaflets appear thickened with a possible vegetation Procedure Type of Study TTE procedure:2D Echocardiogram. Procedure Date Date: 02/12/2017 Start: 09:32 PM Study Location: ER Technical Quality: Limited visualization due to combative patient. Indications:Abnormal ECG. Appropriate Use Criteria: 9 Patient Status: STAT Rhythm: Atrial fibrillation HR: 99 bpm BP: 204/90 mmHg M-Mode/2D Measurements LV Diastolic Dimension: 4.66 cm LV Systolic Dimension: 4.01 cm LV Septum Diastolic: 1.05 cm LV PW Diastolic: 1.05 cm Cardiac Output: 3.93 l/min LA volume: 136 ml LVOT: 1.9 cm LVOT VTI: 14 cm RV Base: 4.36 cm LV Stroke volume: 39.67 ml RV Length: 7.39 cm TAPSE: 1.03 cm TDI-S': 7.13 cm/s Doppler Measurements AV Peak Velocity: 4.76 m/s MV Peak E-Wave: 1.56 m/s AV Peak Gradient: 90.63 mmHg AV Mean Gradient: 50 mmHg MV P1/2t: 44 msec LVOT Peak Velocity: 0.71 m/s TR Velocity:3.87 m/s PV Peak Velocity: 0.98 m/s TR Gradient:59.91 mmHg PV Peak Gradient: 3.86 mmHg Estimated RAP:15 mmHg Estimated PASP: 74.91 mmHg Estimated RVSP: 75 mmHg E' Septal Velocity: 0.05 m/s E' Lateral Velocity: 0.11 m/s Findings Left Ventricle Mild concentric left ventricular hypertrophy. Restrictive filling pattern (severe diastolic dysfunction). Right Ventricle Mild to moderately reduced right ventricular function with pressure and volume overload Mildly dilated right ventricle. Left Atrium The left atrium is severely dilated by LA volume index measurement. Right Atrium The right atrium is severely dilated. Dilated IVC with poor inspiratory collapse consistent with elevated RA pressure. Mitral Valve Severe mitral regurgitation by color Doppler. Moderate mitral annular calcification. Aortic Valve There is severe aortic stenosis by the Continuity Equation. The peak velocity is 4.76 m/s, the mean gradient is 50 mmHg, and the valve area based on the continuity equation is 0.42 cm2, stroke volume index is 40 ml/m2. Tricuspid Valve Severe tricuspid regurgitation by color Doppler. There is severe pulmonary hypertension. The pulmonary pressure (RVSP) is 74.91 mmHg. In some views the tricuspid leaflets appear thickened with a possible vegetation Pulmonic Valve Mild to moderate pulmonic valve regurgitation by color Doppler. Pericardial Effusion No evidence of pericardial effusion. Pleural Effusion No evidence of pleural effusion. Contractility Score LV regional wall motion:(0-Non visualized 1-Normal 2-Hypokinesis 3-Akinesis 4-Dyskinesis 5-Aneurysm) Signature dtt: Redd Summers dtd: 02/12/17 2132 Physician Self Edit
--- NOTE | ~2017-02-12 | CON ---
PATIENT'S NAME: JESSICA LOAIZA [facility] AGE: 86 Y [address] ROOM: [place] [address] LOCATION: GICU ADMIT DATE: 02/12/2017 Consultation DISCHARGE DATE: FAMILY PHYSICIAN: Chilango Reed MD ATTENDING PHYSICIAN: CORTEZ KERN DATE OF CONSULTATION: 02/15/2017 REFERRING PHYSICIAN: Redd Summers MD LOCATION: ICU room [facility]. REFERRING PROVIDER: Farrah Youngblood DNP, NUCLEAR TECHNICIAN. CHIEF COMPLAINT: Palliative Care referral for code status discussion and advance care planning. HISTORY OF PRESENT ILLNESS: The patient is an 86-year-old female who presented to the ER with complaints of chills, fatigue, and increasing confusion. She has a history of end-stage renal disease, on hemodialysis on Monday, Monday, and Monday. She also has a history of systolic heart failure with an EF of 15% to 20% with severe aortic stenosis, severe tricuspid regurgitation, and severe pulmonary hypertension. The patient is currently in the intensive care unit, requiring a levo drip. The patient's mentation has cleared for the most part and she is alert and oriented x3. She reports that her shortness of breath is at baseline. She does complain of some diarrhea today and does have a distant history of C. diff. Given the patient's comorbidities, Palliative Care has been consulted to assist with advanced care planning. PREVIOUS OPERATIONS: 1. Bilateral cataracts. 2. Johnny-en-Y, partial esophagectomy. 3. AV fistula placement. 4. Cystoscopy with lithotripsy. 5. Tonsillectomy. PAST MEDICAL HISTORY: 1. End-stage renal disease, on hemodialysis, Monday, Monday, and Monday. 2. History of hypertensive nephrosclerosis. 3. History of lower GI bleeding. 4. History of AV malformation of the cecum. 5. Paroxysmal atrial fibrillation. 6. Hypothyroidism. PATIENT'S NAME: JESSICA LOAIZA [facility] AGE: 86 Y [address] ROOM: [place] [address] LOCATION: GICU ADMIT DATE: 02/12/2017 Consultation DISCHARGE DATE: FAMILY PHYSICIAN: Chilango Reed MD ATTENDING PHYSICIAN: CORTEZ KERN 7. Seizure disorder. 8. History of a CVA. 9. Systolic congestive heart failure. 10. Lsbcwhko-yq-xswqus aortic stenosis. MEDICATIONS: 1. Tylenol 500 mg every 4 hours as needed. 2. Fosamax 70 mg once a week. 3. Amiodarone 200 daily. 4. Aspirin 81 mg daily. 5. Lipitor 40 mg daily. 6. PhosLo 3 to 4 tablets, 3 times daily with meals and snacks. 7. Calcium plus D daily. 8. Zyrtec 10 mg 3 times a week. 9. Imodium as needed. 10. Ferrous sulfate 325 mg daily. 11. Levothyroxine 88 mcg daily. 12. Midodrine 10 mg 3 times weekly with dialysis. 13. Phenergan 12.5 mg every 4 hours as needed. 14. Ultram 50 mg p.o. every 6 hours as needed. 15. PreserVision multivitamin 1 tablet p.o. daily. ALLERGIES: MORPHINE, CODEINE, HYDROCODONE, PROPOXYPHENE, AND MEPERIDINE. SOCIAL HISTORY: The patient is and lives with her [place] [facility]. They have 2 daughters, one in [place] and one in [place], [place]. No history of tobacco or alcohol use. FAMILY HISTORY: Her father of a heart attack in his 50s. Mother had colon cancer. A sister with breast cancer and a sister with COPD. REVIEW OF SYSTEMS: GENERAL: Appetite has been good. No fever, chills, or night sweats since admission. HEENT: Hard of hearing. No changes in vision or hearing acutely. No headaches. No sinus congestion. RESPIRATORY: Positive for shortness of breath with activity. None at rest. This is baseline for her. No cough. CARDIOVASCULAR: No chest pain or palpitations. Denies orthopnea. No peripheral edema. GASTROINTESTINAL: Denies nausea, vomiting, or constipation. Has a history of C. diff and currently while hospitalized is complaining of loose stools. No PATIENT'S NAME: JESSICA LOAIZA [facility] AGE: 86 Y [address] ROOM: [place] [address] LOCATION: [facility] ADMIT DATE: 02/12/2017 Consultation DISCHARGE DATE: FAMILY PHYSICIAN: Chilango Reed MD ATTENDING PHYSICIAN: CORTEZ KERN difficulties chewing or swallowing. GENITOURINARY: No dysuria, urinary frequency, or urgency. MUSCULOSKELETAL: No joint swelling or joint pain. Denies back pain. Denies any recent falls, but feels just generally weak. NEUROLOGICAL: No numbness or tingling. No dizziness, syncope, or seizures. INTEGUMENTARY: No rashes or open areas. Does point out that her left hand is quite bruised and somewhat swollen. HEMATOLOGIC: No new bruising or bleeding. PSYCHIATRIC: Denies feeling depressed or anxious. No hallucinations. PHYSICAL EXAMINATION: VITAL SIGNS: Blood pressure 99/64, heart rate 87, temperature 98.2, respirations 15, and O2 saturations 97% on 2 L. GENERAL: Reveals a well-developed, elderly white female, who is lying in intensive care unit, does not appear to be in any acute distress. She is alert and oriented x3. HEENT: Normocephalic and atraumatic. Pupils are equal and reactive to light. Sclerae nonicteric. Conjunctivae pink. Tongue and mucous membranes are moist and pink. Dentition is adequate. CARDIOVASCULAR: Heart tones are regular. Rate is controlled. She does have a murmur. RESPIRATORY: Respirations are regular and nonlabored at rest. Lung sounds are clear to auscultation bilaterally. I am not able to note any rales, rhonchi, or wheezes. GASTROINTESTINAL: Abdomen is soft and nontender. Bowel sounds are present. She does have a loose watery stool during my visit. This will be tested for C. diff. MUSCULOSKELETAL: No significant joint deformities. Peripheral pulses are 1+ bilaterally. No clubbing, cyanosis, or lower extremity edema. SKIN: Warm and dry. Her left arm is quite bruised and does have 1 to 2+ generalized edema. NEUROLOGIC: Grossly intact. Mental status is unremarkable. IMPRESSION AND PLAN: 1. Weakness. PT and OT will be initiated. The patient will most likely need a short skilled stay before returning home with her , who is also quite frail. 2. Code status. This was discussed at length with the patient and her family and all are in agreement on a DNR/DNI status, but the patient wishes for shock. Completed a POLST form with the patient and her family. I met with the patient and her , Elver; her daughters, Katia and Steff; introduced the role of palliative care to assist with advanced care planning, goals of care, and symptom management. Did also involve Sharmila PATIENT'S NAME: JESSICA LOAIZA [facility] AGE: 86 Y [address] ROOM: [place] [address] LOCATION: GICU ADMIT DATE: 02/12/2017 Consultation DISCHARGE DATE: FAMILY PHYSICIAN: Chilango Reed MD ATTENDING PHYSICIAN: CORTEZ KERN with Care Management on her visit. Discussed with family the patient's current condition and needs. Both the patient and her family are in agreement that will need a halfway stay before going back home. The benefits and alternatives to this were discussed at length with the patient and family. Sharmila will look into finding detention placement for her here in [place] that will accommodate for her hemodialysis. Also spent significant amount of time discussing advanced directive, the patient does have hiyav-lw-vyopcsyd paperwork on her chart, discussed at length code status and completed a POLST form. I will fax a copy of this to her primary care physician, Dr. Reed, as well as placing a copy of this on our chart. Answered the patient and family's questions to their satisfaction. At this point, the long- term goal is for the patient to be able to get back home. We will continue to work on weaning levo and planned for discharge. The patient denied any spiritual needs. Total visit was 55 minutes. Greater than 50% of this time was spent providing education and counseling on advanced directive and goals of care. Thank you for allowing me to assist this patient and family. ALFREDA GORDON NP FOR MD LYNNE CHISHOLM/modl /[id number] CC: Farrah Youngblood DNP, DENISSE d: 02/17/17 2353 t: 02/27/17 0853, CONSULTATION REPORT
[~2017-02-12 18:10] MED LIST changes: -PHOSLO667 MG PO
[2017-02-12 18:43] LABS: BASOPHIL % 0.5 %; EOSINOPHIL % 0.3 %; HEMATOCRIT 33.3 % (30.0-46.0); HEMOGLOBIN 10.9 g/dL (10.0-15.0); IMMATURE GRANULOCYTE % 0.3 %; LYMPHOCYTE # 1.2 K/uL (0.8-4.0); LYMPHOCYTE % 20.1 %; MCH 37.7 pg (27.0-34.0); MCHC 32.7 gm/dL (32.0-36.5); MCV 115.2 fl (83.0-98.0); MONOCYTE # 0.4 K/uL (0.0-1.0); MPV 10.9 fl (9.4-12.4); NEUTROPHIL # (ANC) 4.3 K/uL (1.8-7.8); NEUTROPHIL % 72.8 %; NRBC % 0 /100WBC (0-0.00); PLATELET COUNT 146 K/uL (150-450); RBC 2.89 M/uL (3.00-5.00); WBC 5.9 K/uL (4.0-11.0)
[2017-02-12 18:52] LABS: INR - (THERAPEUTIC) 1.15 (0.92-1.07); PROTIME 12.1 SECONDS (9.8-11.4); PTT 23 SECONDS (25-32)
[2017-02-12 19:07] LABS: ALBUMIN 3.1 gm/dL (3.5-5.0); CALCIUM 8.2 mg/dL (8.5-10.5); TOTAL BILIRUBIN 0.9 mg/dL (0.0-1.5); TOTAL PROTEIN 8.1 g/dL (6.0-8.4)
[2017-02-12 19:08] LABS: ANION GAP 19.7 (10.0-19.0); CREATININE 5.2 mg/dL (0.5-1.1); MAGNESIUM 2.7 mg/dL (1.8-2.6); POTASSIUM 5.7 mMol/L (3.7-5.1)
[2017-02-12 19:17] LABS: BILIRUBIN URINE NEGATIVE (NEGATIVE); BLOOD URINE 250 /UL (NEGATIVE); GLUCOSE URINE NEGATIVE (NEGATIVE); KETONE URINE NEGATIVE (NEGATIVE); LEUKOCYTES URINE 500 /UL (NEGATIVE); NITRITE URINE NEGATIVE (NEGATIVE); PROTEIN URINE 500 mg/dL (NEGATIVE); UROBILINOGEN URINE NORMAL (NORMAL)
[2017-02-12 19:21] LABS: COLOR URINE BROWN (YELLOW); TURBIDITY URINE 4+ (CLEAR)
[2017-02-12 19:23] LABS: WBC URINE FULL FIELD #/HPF (NEGATIVE)
[2017-02-12 19:31] LABS: EPITHELIAL URINE RARE #/HPF (NEGATIVE); RBC URINE 50-100 #/HPF (NEGATIVE)
[2017-02-12 19:36] LABS: BACTERIA URINE NEGATIVE (NEGATIVE)
[2017-02-12 19:37] LABS: AMORPHOUS URINE 2+ (NEGATIVE)
[2017-02-13 01:37] LABS: ANION GAP 19.6 (10.0-19.0); CREATININE 5.4 mg/dL (0.5-1.1); POTASSIUM 5.6 mMol/L (3.7-5.1)
[2017-02-13 05:36] LABS: ANION GAP 19.8 (10.0-19.0); POTASSIUM 5.8 mMol/L (3.7-5.1)
[2017-02-13 05:37] LABS: CREATININE 5.6 mg/dL (0.5-1.1)
--- NOTE | 2017-02-13 07:13 | NUR ---
PT ADMITTED FROM ER AT 0100. NEUROLOGIC ASSESSMENT IMPROVING AT VERY END OF SHIFT AFTER REPORT GIVEN TO ONCOMING NURSE. DROWSY, SLOW TO RESPOND FOR MOST OF SHIFT. MOVES INDEPENDENTLY WITH WEAK STRENGTH. REMAINS IN AFIB; ON AMIO GTT AT 0.5 MG/MIN; RATE DECREASED AT 0300. PTTHP OF 92 THIS AM, REQUIRING HEPARIN GTT TO BE DECREASED TO 900 UNITS/HR PER PROTOCOL. AFEBRILE, PULSES , EDEMA PRESENT TO LOWER EXTREMITIES. PLACED ON 2LNC, SATS MID 90S. LUNGS REMAINS CLEAR/DIM. NPO FOR THIS RN DUE TO EPISODES OF NAUSEA AND LETHARGY. KAYEXYLATE ENEMA GIVEN FOR K+ OF 5.6; BM X2 AFTER. ANURIC. 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 BUTTOCKS SLIGHTLY REDDENED, L) ARM BRUISED WITH HEMATOMAS. D50/REGULAR INSULIN GIVEN X2 BY THIS RN. PRN ZOFRAN GIVEN X1 DOSE BY THIS RN. JEANETTE RODRIGUEZ, RN
[2017-02-13 08:59] LABS: BASOPHIL % 0.1 %; HEMATOCRIT 29.4 % (30.0-46.0); HEMOGLOBIN 9.9 g/dL (10.0-15.0); IMMATURE GRANULOCYTE # 0.1 K/uL (0.0-0.3); IMMATURE GRANULOCYTE % 0.7 %; LYMPHOCYTE # 0.8 K/uL (0.8-4.0); LYMPHOCYTE % 8.4 %; MCH 37.8 pg (27.0-34.0); MCHC 33.7 gm/dL (32.0-36.5); MCV 112.2 fl (83.0-98.0); MONOCYTE # 0.8 K/uL (0.0-1.0); MONOCYTE % 8.3 %; MPV 11.2 fl (9.4-12.4); NEUTROPHIL # (ANC) 8.2 K/uL (1.8-7.8); NEUTROPHIL % 82.5 %; NRBC % 0 /100WBC (0-0.00); RBC 2.62 M/uL (3.00-5.00); RDW-CV 15.6 % (11.9-14.6); WBC 9.9 K/uL (4.0-11.0)
[2017-02-13 09:02] LABS: PLATELET COUNT 92 K/uL (150-450)
[2017-02-13 09:20] LABS: CALCIUM 7.9 mg/dL (8.5-10.5)
[2017-02-13 09:23] LABS: ANION GAP 21.5 (10.0-19.0); CREATININE 5.6 mg/dL (0.5-1.1); POTASSIUM 5.5 mMol/L (3.7-5.1)
[2017-02-13 09:33] LABS: MAGNESIUM 2.7 mg/dL (1.8-2.6)
[2017-02-13] MEDS ORDERED: PHOSLO667 MG PO (11:50)
--- NOTE | 2017-02-13 14:31 | NUR ---
Significant Event:PT IS AAOX3. NO C/O NUMBNESS OR TINGLING. NO DOUBLE OR BLURRED VISION. WAS DROWSY AT BEGINNING OF SHIFT BUT IS MUCH MORE ALERT SINCE DIAYLSIS. 600ML REMOVED. RECIEVED ALBUMIN X2 TODAY. LEVOPHED START AT 1418. GOAL TO KEEP MAP >65. NO TEMPS ON 2L NC. R) FA FISTULA. PIV X3. L) SUBCLAVIN. SEVERAL MEDS RUNNING. NPO. Follow up:MONITOR
--- NOTE | 2017-02-14 04:44 | NUR ---
Significant Event: Patient is A/O x3. Pupils 2mm, equal,brisk. Moves spontaneously, but weak. Levophed running at 0.12mcg/kg/min to keep MAPs >65. Patient SR with PVCs, HRs 70s-80s. Afibrile. Amio off, PO started. 1L NC. Lung sounds clear and dim throughout. R) forearm fistula, bruit and thrill noted. Renal diet, hypo bowel sounds, patient nauseated after eating. No UOP. Hemodialysis Monday. Follow up:Continue.
[2017-02-14 05:49] LABS: ANION GAP 14.8 (10.0-19.0); CALCIUM 8.2 mg/dL (8.5-10.5); CREATININE 3.4 mg/dL (0.5-1.1); MAGNESIUM 2.3 mg/dL (1.8-2.6); PHOSPHORUS 4.7 mg/dL (2.5-4.9); POTASSIUM 4.8 mMol/L (3.7-5.1); TOTAL BILIRUBIN 0.9 mg/dL (0.0-1.5); TOTAL PROTEIN 6.8 g/dL (6.0-8.4)
[2017-02-14 05:55] LABS: BASOPHIL % 0.6 %; EOSINOPHIL # 0.1 K/uL (0.0-0.5); IMMATURE GRANULOCYTE % 0.5 %; LYMPHOCYTE # 1.1 K/uL (0.8-4.0); LYMPHOCYTE % 18.1 %; MCH 37.9 pg (27.0-34.0); MCHC 33.3 gm/dL (32.0-36.5); MCV 113.6 fl (83.0-98.0); MONOCYTE # 0.7 K/uL (0.0-1.0); MPV 11.2 fl (9.4-12.4); NEUTROPHIL # (ANC) 4.3 K/uL (1.8-7.8); NEUTROPHIL % 68.8 %; NRBC % 0.3 /100WBC (0-0.00); PLATELET COUNT 104 K/uL (150-450); RBC 2.64 M/uL (3.00-5.00); RDW-CV 15.8 % (11.9-14.6); WBC 6.2 K/uL (4.0-11.0)
--- NOTE | 2017-02-14 19:51 | NUR ---
PATIENT HAS BEEN AAOX3. MOVES LOWER EXTREMITIES TO COMMAND WELL THE LEFT ARM, WHICH IS SORE FROM NUMEROUS STICKS. RIGHT ARM IS ALSO SORE. PATIENT IS CURRENTLY ON LEV AND HEPARIN. ALL OTHER DRIPS TURNED OFF. SHE HAS BEEN ON 1 TO 2 LITERS OF O2. PERIODIC BLOOD PRESSURE ISSUES. SHE IS ON A RENAL DIET. SHE ATE 100% OF HER MEALS. SHE HAS BEEN UP IN THE CHAIR FOR 2 HOURS TODAY. PATIENT HAD A BOUT OF DIARRHEA AROUND 1630, ANOTHER AN HOUR LATER, AND A THIRD AROUND 1850. THIS HAD MADE HER VERY EMOTIONAL EACH TIME (HAVING TO GET CLEANED UP AND NOT BEING ABLE TO SIT ON THE TOLIET). HER FAMILY HAS BEEN AT THE BEDSIDE AND BEEN VERY SUPPORTIVE TODAY. SHE WILL BE HAVING DIALYSIS TOMORROW. WILL HAVE A CTPA AT 1900 WITH CONTRAST.
--- NOTE | 2017-02-14 19:58 | NUR ---
1854 CALL MD ALEJO ABOUT GETTING AN ORDER FOR C-DIFF BECAUSE OF THE 3 BOUTS OF DIARRHEA. NO ANSWER.
--- NOTE | 2017-02-14 19:59 | NUR ---
1906 CALL MD ALEJO AGAIN TO GET ORDER FOR C-DIFF CULTURE. NO ANSWER. GAVE REPORT TO PM GEOR[place]IA HEATON AND LET HER KNOW THAT AM RN HAD CALLED TWICE WITH NO ANSWER.
[2017-02-15 05:50] LABS: ALBUMIN 2.6 gm/dL (3.5-5.0); ANION GAP 15.6 (10.0-19.0); CALCIUM 8.6 mg/dL (8.5-10.5); MAGNESIUM 2.4 mg/dL (1.8-2.6); POTASSIUM 4.6 mMol/L (3.7-5.1); TOTAL BILIRUBIN 0.8 mg/dL (0.0-1.5); TOTAL PROTEIN 6.6 g/dL (6.0-8.4)
[2017-02-15 05:51] LABS: CREATININE 4.9 mg/dL (0.5-1.1)
[2017-02-15 06:00] LABS: BASOPHIL % 0.6 %; EOSINOPHIL # 0.2 K/uL (0.0-0.5); EOSINOPHIL % 2.7 %; HEMATOCRIT 30.3 % (30.0-46.0); HEMOGLOBIN 10.1 g/dL (10.0-15.0); IMMATURE GRANULOCYTE % 0.4 %; LYMPHOCYTE # 1.1 K/uL (0.8-4.0); LYMPHOCYTE % 15.6 %; MCH 37.5 pg (27.0-34.0); MCHC 33.3 gm/dL (32.0-36.5); MCV 112.6 fl (83.0-98.0); MONOCYTE # 0.7 K/uL (0.0-1.0); MONOCYTE % 10.1 %; MPV 10.9 fl (9.4-12.4); NEUTROPHIL # (ANC) 4.8 K/uL (1.8-7.8); NEUTROPHIL % 70.6 %; NRBC % 0.6 /100WBC (0-0.00); PLATELET COUNT 114 K/uL (150-450); RBC 2.69 M/uL (3.00-5.00); RDW-CV 15.4 % (11.9-14.6); WBC 6.7 K/uL (4.0-11.0)
--- NOTE | 2017-02-15 07:26 | NUR ---
Significant Event: Patient is A/O x3. Pupils equal,brisk. SR with PVC, HRs 70s-80s. Afibrile. Levophed gtt to keep maps >65. Lung sounds clear/dim throughout. Active bowel sounds, loose, inc BM x3. Patient hemodialysis M/W/F. Fistula to R) forearm, bruit and thrill present. Central line dressing changed. D/C L) AC PIV. Bruising and swelling to Left arm from numerous IV pokes. Patient Bathed. Follow up: Continue
--- NOTE | 2017-02-15 09:14 | NUR ---
A - NUTRITION F/U. GLU 96, BUN/FLORAL CLERK 46/4.9, ALB 2.6. PT W/ 1-2+ BLE EDEMA. DIALYSIS M/W/F. DIET: RENAL W/ INTAKE 75-100%. ENSURE BID W/ MEALS. D - AT RISK W/ INCREASED NUTRIENT NEEDS R/T ESRD AEB HEMODIALYSIS. I - GOAL: CONT CURRENT INTAKE. M/E - CONSIDER LIBERLIZING DIET TO REGULAR. WILL F/U IN 2-4 DAYS.
--- NOTE | 2017-02-15 11:45 | NUR ---
Call from Claudine with pallative care that she was meeting with family and they would like for me to be there as well. Went down to Aure' room, her and her two daughters were all at bedside. Introduced self and CM role to them. Answered their questions re:Medicare coverage at a SNF. After questions were answered, Holly and family decided that going to a SNF for some short term therapies would benifit her. The goal is for her to return back home with her when she is stronger. Holly does have dialysis on MWF at [id number]. PCP is . Family would like for me to look into SNFs- [facility], [facility], [facility] and [facility]. Top choices are listed as [facility] and [facility]. Let them know that I would call to see if any had open female beds and if they did, would also see if they could accomidate dialysis transportation. If any of them could, then I would fax a referral to them. All were in agreement with this plan. Family prefers that I first update Holly and if he is in the room. Then call daughter Conner [phone] then daughter Steff [phone] and they will call and updated their dad, pt , if he isn't in the room. Explained to them that I would handle getting her to the SNF of their choice once that was known. They were all in agreement with this plan. Also provided daughters and each with a copy of [facility], caregivers and helping agencies in the [facility] for down the road for them to refer to. No other questions, needs or concerns at this time. In reviewing her chart, I noticed that we had no therapies ordered to work with her so I asked her primary RN to call and get a therapy order from as soon as he could. RN states he will do this in a bit. I gathered other information off the chart for a referral. Phoned over to Kristen at [facility], she says they have beds thinks they could also accomidate the dialysis chair time as well. Will fax her over a referral when therapies have seen her and put in a note. I also phoned over to Jane at [facility], plant ecologist was unable to connect me with her or let me leave a VM so I will just go ahead and fax them a referral and try to connect with Zoey later on today. CM to continue to follow and assist. Plan SNF upon dismissal.
--- NOTE | 2017-02-15 15:46 | NUR ---
A/OX3. PERRLA. NO PAIN, N/T. UP WITH WALKER AND GAITBELT TODAY WITH THERAPY. HEPARIN GTT D/C'D. LEVO GTT CONTINUES TO BE TITRATED TO KEEP MAPS >65. AFEBRILE. RA WHILE AWAKE AND 1L WHILE SLEEPING TO KEEP O2 SATS >90. LOOSE BM X1, TESTED FOR C.DIFF AND WAS NEGATIVE. FOLLOW UP: TRANSFERED TO ICU SOUTH, CONTINUE TO WEAN LEVO GTT.
--- NOTE | 2017-02-15 17:18 | NUR ---
Significant Event: Patient condition unchanged since transferring from ICU south. Diarrhea X1. CDIFF stool sample negative. Levophed titrated down to 0.06. Goal to keep MAP >65. Patient pleasant and cooperative with cares. Follow up:
--- NOTE | 2017-02-16 05:04 | NUR ---
Significant Event: PATIENT IS ALERT AND ORIENTED X3. FOLLOWS COMMANDS. MOVES SPONTANEOUSLY. VSS. PERRLA. GENERALIZED WEAKNESS. HR IN THE 80'S-90'S. SBP 80'S-ONE TEEN'S. ON LEVO GTT AT 0.02- KEEP MAP GREATER THAN 65. THREADY PULSES. 3+ EDEMA TO THE LEFT HAND AND ARM-WRAPPED IN MARILEE BANDAGE. 1L OF O2 PER NC-TACHYPNEA MID 20'S. ANURIA- R) ARM FISTULA, BRUIT AND THRILL. BOWELS ARE HYPERACTIVE. LOOSE STOOLS-IMODIUM GIVEN. C-DIFF NEGATIVE. 1A GB/WALKER. PIV IN L) WRIST-SL'D, DOES FLUSH WELL. L) SUBCLAVIAN (INFUSING LEVO). TAKES PILLS WHOLE WITH WATER. PALLIATIVE IS ON BOARD. Follow up: DIALYSIS ON MONDAY.
[2017-02-16 07:07] LABS: BASOPHIL % 0.6 %; EOSINOPHIL # 0.2 K/uL (0.0-0.5); EOSINOPHIL % 3.3 %; HEMATOCRIT 30.3 % (30.0-46.0); HEMOGLOBIN 9.7 g/dL (10.0-15.0); IMMATURE GRANULOCYTE % 0.4 %; LYMPHOCYTE # 0.9 K/uL (0.8-4.0); LYMPHOCYTE % 18.5 %; MCV 115.6 fl (83.0-98.0); MONOCYTE # 0.7 K/uL (0.0-1.0); MONOCYTE % 14.5 %; MPV 10.2 fl (9.4-12.4); NEUTROPHIL # (ANC) 3.1 K/uL (1.8-7.8); NEUTROPHIL % 62.7 %; NRBC % 1.8 /100WBC (0-0.00); PLATELET COUNT 116 K/uL (150-450); RBC 2.62 M/uL (3.00-5.00); RDW-CV 15.7 % (11.9-14.6); WBC 4.9 K/uL (4.0-11.0)
[2017-02-16 07:15] LABS: ANION GAP 14.1 (10.0-19.0); CALCIUM 8.8 mg/dL (8.5-10.5); CREATININE 3.4 mg/dL (0.5-1.1); MAGNESIUM 2.3 mg/dL (1.8-2.6); POTASSIUM 4.1 mMol/L (3.7-5.1); TOTAL BILIRUBIN 0.8 mg/dL (0.0-1.5); TOTAL PROTEIN 6.8 g/dL (6.0-8.4)
--- NOTE | 2017-02-16 12:20 | NUR ---
0900 VM from Jane at [facility], they can not accept Holly. Kristen from [facility] phoned me to let me know that she will be up to eval Holly at 1100 today and then will get back to me on if they can accept or not. I stopped by Aure' room and updated Holly and to this, they were fine with the plan for [facility] to come and assess. Let them know I would update them and their daughters once I heard back from Kristen at [facility]. 1220 VM from Kristen that they came to look at Holly and they would be happy to accept her if family and Holly wanted to go that direction. Called to update daughter, Conner, to this news. She didn't answer so a VM was left with her. Will update Holly this afternoon to this news and see if they are fine going to SNF at [facility]. Packet started, orders printed, ID Screen complete and in the packet. CM to continue to follow and assist. Plan SNF upon dismissal.
--- NOTE | 2017-02-16 14:21 | NUR ---
Significant Event: PATIENT A/O X 3. FOLLOWS COMMANDS. GENERALIZED WEAKNESS. DENIES NUMBNESS/TINGLING. PUPILS 3MM, BRISK. LUNGS CLEAR AND DIM ON ROOM AIR. HEART CONTINUES IN AFIB AT TIMES. CONTINUES TO HAVE LOOSE STOOLS, BUT MUCH BETTER TODAY. IMMODIUM GIVEN X 1. DENIES PAIN. IV IN LEFT HAND SALINE LOCKED, WAS LEAKING SLIGHTLY BUT OK NOW AFTER DRESSING CHANGED AND REINFORCED. LEFT CHEST SUBCLAVIAN INTACT, LEVO INFUSING. BP'S AVE BEEN 80-100'S. HAVE BEEN TITRATING UP AND DOWN TODAY. FISTULA TO RT ARM. DIALYSIS MONDAY, MON, MON. UP WITH 1 ASSIST AND WALKER. ALARMS ON FOR SAFETY. [facility] HERE TO ASSES PATIENT. PLAN FOR HER TO GO THERE FOR A SHORT TIME WHEN STABLE. Follow up: LEVO DRIP, BPS'. KEEP MAP >65. DIALYSIS
--- NOTE | 2017-02-16 23:50 | NUR ---
Significant Event: Cares from [id number]. A/Ox3. Ambulates 1A with walker and gait belt. Hypotensive 80-90s SBP and Levo gtt adjusted x1 from 0.03 to 0.04. Dialysis M/W/F and right arm fistula. L)chest subclavian. Immodium given for loose stools. Ronnie wrap to left arm for edema. Denies numbness/tingling and follows commands. Follow up: Levo gtt
--- NOTE | 2017-02-17 02:41 | NUR ---
Significant Event: A&Ox3. Denies N or T. Up 1 AGBW. On levo for hypotension goal is MAP >65. RA lungs clear and dim. Amodium given with 2100 meds due to loose stools. Regular diet. L) arm in edema sleeve. Fistula to R) arm. Double lumen subclavian. No accuchecks. Follow up: Dialysis today in room
[2017-02-17 04:39] LABS: ALBUMIN 2.8 gm/dL (3.5-5.0); ANION GAP 15.5 (10.0-19.0); CALCIUM 8.6 mg/dL (8.5-10.5); MAGNESIUM 2.4 mg/dL (1.8-2.6); POTASSIUM 4.5 mMol/L (3.7-5.1); TOTAL BILIRUBIN 0.7 mg/dL (0.0-1.5); TOTAL PROTEIN 6.3 g/dL (6.0-8.4)
[2017-02-17 04:45] LABS: CREATININE 4.5 mg/dL (0.5-1.1)
[2017-02-17 04:49] LABS: BASOPHIL % 0.6 %; EOSINOPHIL # 0.2 K/uL (0.0-0.5); EOSINOPHIL % 3.7 %; HEMATOCRIT 29.6 % (30.0-46.0); HEMOGLOBIN 9.7 g/dL (10.0-15.0); IMMATURE GRANULOCYTE # 0.1 K/uL (0.0-0.3); IMMATURE GRANULOCYTE % 1.1 %; LYMPHOCYTE # 1.1 K/uL (0.8-4.0); LYMPHOCYTE % 20.6 %; MCH 37.7 pg (27.0-34.0); MCHC 32.8 gm/dL (32.0-36.5); MCV 115.2 fl (83.0-98.0); MONOCYTE # 0.7 K/uL (0.0-1.0); MONOCYTE % 13.6 %; MPV 10.7 fl (9.4-12.4); NEUTROPHIL # (ANC) 3.2 K/uL (1.8-7.8); NEUTROPHIL % 60.4 %; NRBC % 2.4 /100WBC (0-0.00); PLATELET COUNT 129 K/uL (150-450); RBC 2.57 M/uL (3.00-5.00); RDW-CV 15.7 % (11.9-14.6); WBC 5.4 K/uL (4.0-11.0)
--- NOTE | 2017-02-17 13:36 | NUR ---
A - NUTRITION F/U. GLU 87, BUN/MEETING SPECIALIST 44/4.5, ALB 2.8. DIALYSIS TODAY. CBW: 138#, WT RELATIVELY STABLE FOR DIALYSIS PT. DIET: RENAL W/ ENSURE BID. INTAKE USUALLY 75-100%. D - AT RISK W/ INCREASED NEEDS R/T ESRD AEB HEMODIALYSIS. I - GOAL: CONT CURRENT INATKE. M/E - PT APPEARS TO BE NUTRITIONALLY STABLE. WILL F/U ON INTAKE IN 5-7 DAYS.
--- NOTE | 2017-02-17 18:10 | NUR ---
PT IS AOX3. PT IS IN NSR, WITH HR 80s-90s. HAS BEEN HYPOTENSIVE, LEVO GTT HAS BEEN TITRATED. LEVO CURRENTLY RUNNING IN L)SUBLCALVIAN AT 0.09. KEEP MAP >65. ALL OTHER VSS. PT IS ON RA, CLEAR AND DIM. PT IS A DIALYSIS PT. PT IS ANURIC. HAD DIALYSIS THIS AFTERNOON. PT DOES HAVE SOME SCATTERED BRUISING, L) HAND BRUISED, EDEMA SLEEVE TO L)ARM, AND PT HAS A FISTULA IN THE R)ARM. THRILL AND BRUIT POSITIVE.
--- NOTE | 2017-02-18 04:14 | NUR ---
Significant Event: PATIENT IS A/OX3. DENIES N/T. MODERATE, EQUAL STRENGTH. PUPILS 2.0 AND BRISK. UP 1 ASSIST GAIT BELT WALKER. ON LEVO GTT. STARTED SHIFT AT 0.09MCG, CURRENTLY AT 0.03MCG. MAPS HAVE RANGED IN 60S-80S - AVERAGED IN THE MID 70S MOST OF NIGHT. DIALYSIS ENDED THIS SHIFT - HAD 1.5L OFF. HAD 2 LOOSE BMS THIS SHIFT - GAVE IMMODIUM PER PATIENT REQUEST. HEART RATE IN 80S-90S. SBP 90S-100S. IN SINUS RHYTHM. NO COMPLAINTS OF PAIN. DID COMPLAIN OF BEENING "ITCHY ALL OVER". PATIENT SAID THIS IS COMMON ON DIALYSIS DAYS - GAVE BENADRYL WITH RELIEF NOTED. HAS LEFT SUBCLAVIAN IV WITH LEVO RUNNING. HAS RIGHT ARM FISTULA WITH THRILL AND BRUIT NOTED. RENAL DIET. LUNGS CLEAR ON ROOM AIR. Follow up:
[2017-02-18 04:20] LABS: ANION GAP 12.6 (10.0-19.0); CALCIUM 8.5 mg/dL (8.5-10.5); CREATININE 2.8 mg/dL (0.5-1.1); MAGNESIUM 2.3 mg/dL (1.8-2.6); POTASSIUM 4.6 mMol/L (3.7-5.1); TOTAL BILIRUBIN 0.7 mg/dL (0.0-1.5); TOTAL PROTEIN 6.6 g/dL (6.0-8.4)
[2017-02-18 04:30] LABS: BASOPHIL % 0.2 %; HEMATOCRIT 29.6 % (30.0-46.0); HEMOGLOBIN 9.9 g/dL (10.0-15.0); IMMATURE GRANULOCYTE # 0.1 K/uL (0.0-0.3); IMMATURE GRANULOCYTE % 1.1 %; LYMPHOCYTE # 0.5 K/uL (0.8-4.0); LYMPHOCYTE % 11.2 %; MCH 38.1 pg (27.0-34.0); MCHC 33.4 gm/dL (32.0-36.5); MCV 113.8 fl (83.0-98.0); MONOCYTE # 0.2 K/uL (0.0-1.0); MONOCYTE % 4.2 %; MPV 10.1 fl (9.4-12.4); NEUTROPHIL # (ANC) 3.8 K/uL (1.8-7.8); NEUTROPHIL % 83.3 %; NRBC % 2.2 /100WBC (0-0.00); PLATELET COUNT 130 K/uL (150-450); RDW-CV 15.4 % (11.9-14.6); WBC 4.5 K/uL (4.0-11.0)
--- NOTE | 2017-02-18 16:47 | NUR ---
Significant Event: a/o x 3. denies pain. denies numbness/tingling. equal strength throughout. EKG today- sinus with first degree AV block. room air. edema and bruising to left upper extremity- edema glove and tubigrip on. Triple lumen left subclavian with levophed infusing at 0.01- may wean off for MAP greater than 60. Takes meds whole, renal diet. Fistula to right arm. ambulates with walker/gait belt and one assist.
[2017-02-19 03:47] LABS: ALBUMIN 3.3 gm/dL (3.5-5.0); ANION GAP 18.4 (10.0-19.0); CALCIUM 8.8 mg/dL (8.5-10.5); CREATININE 4.3 mg/dL (0.5-1.1); MAGNESIUM 2.6 mg/dL (1.8-2.6); POTASSIUM 5.4 mMol/L (3.7-5.1); TOTAL BILIRUBIN 0.7 mg/dL (0.0-1.5); TOTAL PROTEIN 7.3 g/dL (6.0-8.4)
[2017-02-19 03:50] LABS: HEMATOCRIT 33.2 % (30.0-46.0); HEMOGLOBIN 11.1 g/dL (10.0-15.0); IMMATURE GRANULOCYTE % 0.4 %; LYMPHOCYTE # 1.2 K/uL (0.8-4.0); LYMPHOCYTE % 17.6 %; MCH 38.1 pg (27.0-34.0); MCHC 33.4 gm/dL (32.0-36.5); MCV 114.1 fl (83.0-98.0); MONOCYTE # 0.1 K/uL (0.0-1.0); MONOCYTE % 1.7 %; MPV 10.4 fl (9.4-12.4); NEUTROPHIL # (ANC) 5.7 K/uL (1.8-7.8); NEUTROPHIL % 80.3 %; NRBC % 2.1 /100WBC (0-0.00); PLATELET COUNT 152 K/uL (150-450); RBC 2.91 M/uL (3.00-5.00); RDW-CV 16.1 % (11.9-14.6)
--- NOTE | 2017-02-19 04:13 | NUR ---
Significant Event: A/OX3. DENIES N/T. MODERATE, EQUAL STRENGTH. PUPILS 2.0 AND BRISK. LEVO OFF ALL NIGHT. MAPS RANGED FROM 65-81. ORDER TO KEEP MAP >60. HEART RATE IN THE 80S-90S. SBP IN 90S-110S. AFEBRILE. LUNGS CLEAR ON ROOM AIR. DIALYSIS TUNNELED CATHETER TO RIGHT ARM - BRUIT AND THRILLS NOTED. LEFT SUBCLAVIAN IV SALINE LOCKED. DENIES PAIN. UP 1 ASSIST GAIT BELT WALKER. RENAL DIET. DIAYLSIS MWF. Follow up:
--- NOTE | 2017-02-19 13:50 | NUR ---
Significant Event: a/o x 3. denies pain. Tele- does go in and out of sinus and aflutter. Dr. Antonio (Cardiology) aware. Goal to keep MAP greater than 60. Voids small amounts. Edema to left upper extremity. Fistula to right upper extremity. Triple lumen subclavian to left chest saline locked. Ambulates with walker/gait belt and one assist. Takes meds whole. Regular diet. Discharge plan- to SNF when ready. NTU status.
[2017-02-20 03:55] LABS: ANION GAP 18.1 (10.0-19.0); CALCIUM 8.3 mg/dL (8.5-10.5); MAGNESIUM 2.6 mg/dL (1.8-2.6); POTASSIUM 5.1 mMol/L (3.7-5.1); TOTAL BILIRUBIN 0.6 mg/dL (0.0-1.5); TOTAL PROTEIN 6.7 g/dL (6.0-8.4)
--- NOTE | 2017-02-20 03:55 | NUR ---
Significant Event: A/OX3. Denies n/t. Moderate, equal strength. Afebrile. Sbp in 80s-100s. MAP 65-77. Order to keep MAP >60. Heart rate in 80s. Up 1 assist gait belt and walker. Renal diet. Denies pain. IV to left subclavian, saline locked. Fistula to right arm - thrill and bruit noted. Dialysis today.Lungs clear on room air. Renal diet. Follow up: Dialysis today.
[2017-02-20 03:56] LABS: CREATININE 5.3 mg/dL (0.5-1.1)
[2017-02-20 03:59] LABS: HEMATOCRIT 29.1 % (30.0-46.0); HEMOGLOBIN 9.8 g/dL (10.0-15.0); IMMATURE GRANULOCYTE % 0.5 %; LYMPHOCYTE # 0.5 K/uL (0.8-4.0); LYMPHOCYTE % 9.1 %; MCHC 33.7 gm/dL (32.0-36.5); MCV 112.8 fl (83.0-98.0); MONOCYTE # 0.2 K/uL (0.0-1.0); MONOCYTE % 3.4 %; MPV 10.5 fl (9.4-12.4); NEUTROPHIL # (ANC) 5.1 K/uL (1.8-7.8); NRBC % 2.1 /100WBC (0-0.00); PLATELET COUNT 134 K/uL (150-450); RBC 2.58 M/uL (3.00-5.00); RDW-CV 16.3 % (11.9-14.6); WBC 5.9 K/uL (4.0-11.0)
--- NOTE | 2017-02-20 08:33 | NUR ---
PATIENT A/O X 3. FOLLOWS COMMANDS. DENIES PAIN. CURERNTLY IN SINUS RHYTHM, DOES GO INTO FIB/FLUTTER AT TIMES. LUNGS CLEAR AND DIM ON ROOM AIR. LEFT CHEST SUBCLAVIAN, SALINE LOCKED. RT ARM FISTULA. UP WITH 1 ASSIST AND WALKER. DID HAVE A 200ML EMESIS TODAY WHEN EATING BREAKFAST, DID FEEL BETTER AFTER. VITALS STABLE, DOES CONTINUE TO HAVE HYPOTENSION, ORDERS TO KEEP MAP >60. PATIENT HAS BEEN OF LEVOPHED DRIP SINCE MONDAY. WENT TO DIALYSIS AT 0820 THEN PLAN TO TRANSFER TO PCU AFTER. REPORT GIVEN TO [place] DUNHAM. I DID CALL PATIENT'S AND LEFT A MESSAGE
--- NOTE | 2017-02-20 16:07 | NUR ---
Significant Event: A/O. VSS on RA. Denies pain. 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 Patient denies nausea and states that her food tastes good to her and she just can't keep it down. Refused the need for zofran. Up with 1 assist. dialysis today with 900ml off. Per patient she states she is having a heart cath tomorrow no orders on chart but pre cath orders placed on chart for MD. Follow up: cont plan of care
--- NOTE | 2017-02-21 04:11 | NUR ---
Significant Event: Patient alert and oriented. Up with 1 assist. Pressures 90s/50s 0300 pressure 78/52 with MAP of 61 as pateint was laying on right side. Room air. Denies pain. Continues to have problems keeping food down but denies need for nausea medication. Pleasant and cooperative with cares. Rested through out shift. Follow up: continue to monitor, possible heart cath in am.
[2017-02-21 04:43] LABS: HEMATOCRIT 29.8 % (30.0-46.0); HEMOGLOBIN 9.8 g/dL (10.0-15.0); MCHC 32.9 gm/dL (32.0-36.5); MCV 115.5 fl (83.0-98.0); MPV 10.2 fl (9.4-12.4); PLATELET COUNT 130 K/uL (150-450); RBC 2.58 M/uL (3.00-5.00); RDW-CV 17.2 % (11.9-14.6); WBC 4.9 K/uL (4.0-11.0)
[2017-02-21 05:00] LABS: ALBUMIN 3.3 gm/dL (3.5-5.0); ANION GAP 12.5 (10.0-19.0); CALCIUM 8.6 mg/dL (8.5-10.5); CREATININE 3.6 mg/dL (0.5-1.1); MAGNESIUM 2.5 mg/dL (1.8-2.6); POTASSIUM 4.5 mMol/L (3.7-5.1); TOTAL PROTEIN 6.9 g/dL (6.0-8.4)
[2017-02-21 05:05] LABS: TOTAL BILIRUBIN 0.9 mg/dL (0.0-1.5)
[2017-02-21 05:38] LABS: ABSOLUTE NEUTROPHIL CT (ANC) 4.2 K/uL (1.8-7.8); BANDED NEUTROPHIL # 0.2 K/uL (0.0-0.1); BANDED NEUTROPHILS % 5 %; LYMPHOCYTE # 0.6 K/uL (0.8-4.0); LYMPHOCYTE % 12 %; MONOCYTE # 0.1 K/uL (0.0-1.0); SEGMENTED NEUTROPHIL % 81 %
--- NOTE | 2017-02-21 13:18 | NUR ---
Reviewed Aure' chart, it appears that she is going to have a heart cath done today and then doctors are planning on dialysis in the morning tomorrow. I phoned over to Kristen at [facility] and updated her to this. She tells me that this is fine and they will continue to get updates. If she would be ready to dismiss tomorrow, I will call Kristen in the morning and set up a time for transport. CM to continue to follow and assist.
--- NOTE | 2017-02-21 18:39 | NUR ---
Significant Event: SBP 100'S. HEART CATH TODAY WITH DR PENALOZA VIA RIGHT GROIN WITH PERCLOSE SUTURE. GAUZE/TEGADERM MOIST WITH SEROSANG DRAINAGE BUT AREA SOFT, NO BRUISING OR BLEEDING. NO INTERVENTION HOWEVER PT NEEDS W/U FOR TAVR AND FOUND TO HAVE PULM HTN AND AORTIC STENOSIS. NS AT 125ML/HR VIA L) QUAD CENTRAL LINE FOR 1 LITER THEN SL'D. BEDREST FOR 3 HOURS THEN DC'D AT 1600. NO C/O PAIN. TOLERATING MEALS WITH NO EMESIS TODAY AFTER MEALS. STIM TEST WITH CORTISOL LEVELS THIS EVENING SCHEDULED AT 1999. Follow up: DIALYSIS IN AM. CORTISOL AND ACTH LEVEL AT 1999 THEN MED GIVEN, THEN CORTISOL DRAW AT 30 MINUTES AND 60 MINUTES POST MEDICATION. POSSIBLE DC TO [facility] TOMORROW.
--- NOTE | 2017-02-22 02:54 | NUR ---
Significant Event: Patient alert and oriented. Up with 1 assist. Denies pain. No nausea this shift. Right groin remains soft with no hematoma noted. Left subclavin central line flushes well with blue lumen not giving good blood return. Pleasant and cooperative with cares. Rested well throughout shift. Follow up: dialysis in am.
[2017-02-22 05:05] LABS: ALBUMIN 3.2 gm/dL (3.5-5.0); ANION GAP 19.4 (10.0-19.0); CALCIUM 8.6 mg/dL (8.5-10.5); MAGNESIUM 2.6 mg/dL (1.8-2.6); POTASSIUM 5.4 mMol/L (3.7-5.1); TOTAL BILIRUBIN 0.8 mg/dL (0.0-1.5); TOTAL PROTEIN 6.8 g/dL (6.0-8.4)
[2017-02-22 05:16] LABS: CREATININE 4.8 mg/dL (0.5-1.1)
[2017-02-22 05:23] LABS: HEMOGLOBIN 10.4 g/dL (10.0-15.0); IMMATURE GRANULOCYTE % 0.7 %; LYMPHOCYTE # 0.5 K/uL (0.8-4.0); LYMPHOCYTE % 8.5 %; MCH 38.1 pg (27.0-34.0); MCHC 33.5 gm/dL (32.0-36.5); MCV 113.6 fl (83.0-98.0); MONOCYTE # 0.4 K/uL (0.0-1.0); MONOCYTE % 6.5 %; MPV 10.6 fl (9.4-12.4); NEUTROPHIL % 84.3 %; NRBC % 1.8 /100WBC (0-0.00); PLATELET COUNT 134 K/uL (150-450); RBC 2.73 M/uL (3.00-5.00); RDW-CV 17.5 % (11.9-14.6)
--- NOTE | 2017-02-22 12:18 | NUR ---
[facility] asking if they would accept her today or if we would need to wait until tomorrow. Kristen says that they have a lot of dismissals today and it would be better to take her tomorrow. Let her know that this was fine. Plan to dismiss to [facility] 02/23 at 1230, [place] van to transport. Updated RN Melita to this. Packet started, orders printed and ID Screen is complete and in the chart. Holly was down in dialysis so I will stop by and update her later to this and also update her daughters as well. Dialysis RNs are aware and will be making sure that [facility] knows she will be returning to them on Monday for her outpatient dialysis needs. Sticky note left on the chart to update others on dismissal plans - [place] 02/23 at 1230 [place] van to transport, RN to RN number for staff to call in report tomorrow prior to her leaving. CM to continue to follow and assist.
--- NOTE | 2017-02-22 18:06 | NUR ---
Significant Event: SBP 86-119 WITH GOAL OF MAP >60. NO C/O PAIN. DIALYSIS TODAY VIA RIGHT FOREARM FISTULA WITH BLEEDING ISSUES POST-DIALYSIS WITH AM DOSE OF HEPARIN HELD. GAUZE AND TAPE INTACT TO R) FA FISTULA, D/I. [facility] NOT ABLE TO TAKE PATIENT TODAY. PLAN TO DC TOMORROW AROUND 1230 TO [facility]. LEFT SUBCLAVIAN CL SL'D. Follow up: DC MEDS ALREADY ON CHART. CONT TO MONITOR PER PLAN OF CARE. DC TOMORROW AT 1230.
--- NOTE | 2017-02-23 03:48 | NUR ---
Pt A&Ox4, VSS on RA, SBPs from 91-99 with maps from 66-83. Denies pain. Fistula to right arm, no new drainage noted to dressings. Left subclavian central line, dressing changed this shift. Right groin heart cath site soft, slightly bruised, no drainage. Up with SBA. Plan is for [facility] at approximately 1230 today.
[2017-02-23 04:49] LABS: ALBUMIN 2.9 gm/dL (3.5-5.0); ANION GAP 14.6 (10.0-19.0); CALCIUM 8.1 mg/dL (8.5-10.5); CREATININE 3.3 mg/dL (0.5-1.1); MAGNESIUM 2.4 mg/dL (1.8-2.6); POTASSIUM 4.6 mMol/L (3.7-5.1); TOTAL BILIRUBIN 0.9 mg/dL (0.0-1.5); TOTAL PROTEIN 6.2 g/dL (6.0-8.4)
[2017-02-23 05:06] LABS: HEMATOCRIT 30.2 % (30.0-46.0); HEMOGLOBIN 10.2 g/dL (10.0-15.0); IMMATURE GRANULOCYTE % 0.5 %; LYMPHOCYTE # 0.6 K/uL (0.8-4.0); LYMPHOCYTE % 9.4 %; MCH 38.6 pg (27.0-34.0); MCHC 33.8 gm/dL (32.0-36.5); MCV 114.4 fl (83.0-98.0); MONOCYTE # 0.5 K/uL (0.0-1.0); MONOCYTE % 8.5 %; NEUTROPHIL # (ANC) 5.1 K/uL (1.8-7.8); NEUTROPHIL % 81.6 %; NRBC % 0.6 /100WBC (0-0.00); PLATELET COUNT 130 K/uL (150-450); RBC 2.64 M/uL (3.00-5.00); RDW-CV 17.7 % (11.9-14.6); WBC 6.2 K/uL (4.0-11.0)
--- NOTE | 2017-02-23 12:34 | NUR ---
Called and faxed dismissal orders to Kristen at [facility] this morning. 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 Kristen tells me that this is still the plan. RN to RN to be called in by her RN today, number is on the chart and she is aware it needs to be called prior to her leaving. Aure' daughter is here with her and is also aware and in agreement with dismissal today at 1230. CM to continue to follow and assist. Plan [facility] today at 1230.
--- NOTE | 2017-02-23 13:08 | NUR ---
Patient is A/Ox3. VSS on RA. Quad luman central line discontinued at 1255. Patient ambulated in halls with PT with no difficulties. Patient transfers as a one assist with gaitbelt and walker. Patient dressed and transfered to [facility] by their own staff. Patient has dialysis on with a fistula to lower right arm.
== END 2017-02-23 13:15 | DRG 871 ==
LOC: GMED 18:10 → GMSU 20:10 → GMED 20:10 → GICU 20:56 → GPCU 02-20 08:33
PROVIDERS: Emergency Medicine; Internal Medicine; ADMIT Internal Medicine
PROC: B246ZZZ Ultrasonography of Right and Left Heart (ICD-10-PCS; principal; 2017-02-12)
PROC: 5A1D60Z (ICD-10-PCS; 2017-02-13)
DX: A41.9 Sepsis, unspecified organism (principal); I50.43 Acute on chronic combined systolic (congestive) and diastolic (congestive) heart failure; R57.0 Cardiogenic shock; G93.40 Encephalopathy, unspecified; N18.6 End stage renal disease; I42.9 Cardiomyopathy, unspecified; E27.40 Unspecified adrenocortical insufficiency; I27.2 Other secondary pulmonary hypertension; I13.2 Hypertensive heart and chronic kidney disease with heart failure and with stage 5 chronic kidney disease, or end stage renal disease; I48.92 Unspecified atrial flutter; N39.0 Urinary tract infection, site not specified; B96.89 Other specified bacterial agents as the cause of diseases classified elsewhere; E03.9 Hypothyroidism, unspecified; E87.5 Hyperkalemia; I48.0 Paroxysmal atrial fibrillation; Z51.5 Encounter for palliative care; Z66 Do not resuscitate; D64.9 Anemia, unspecified
CPT/HCPCS: C1760; C9113; J0282; J0610; J0834; J1200; J1250; J1644; J1885; J2020; J2250; J2405; J2543; J2550; J3010; J3360; J7030; J7040; J7050; J7060; P9047; Q9967

== ENCOUNTER → 2017-02-12 | Outpatient (CLI) | payer MEDICARE, OTHER ==
[~2017-02-12] MED LIST changes: +PHOSLO667 MG PO
== END | disposition disaster alternative care site (69) ==
LOC: GAMB 17:45
DX: I49.9 Cardiac arrhythmia, unspecified (principal); N18.4 Chronic kidney disease, stage 4 (severe); R53.1 Weakness; R11.0 Nausea
CPT/HCPCS: A0425; A0427; J2405; J7030